=== PATIENT | male | born 1940 | race Caucasian/White ===

== ENCOUNTER → 2018-01-04 16:31 | Outpatient (CLI) | payer MEDICARE, SELFPAY ==
--- NOTE | 2018-01-04 16:34 | DI.RAD.S_ITS ---
PROCEDURE: XR ACUTE ABDOMEN SERIES INDICATIONS: ABDOMINAL PAIN TECHNIQUE: One view chest and two views of the abdomen were acquired. COMPARISON: None. FINDINGS: Surgical changes and devices: Multiple prior surgical clips are noted across the abdomen and pelvis. Chest: Lungs are clear. Heart size is normal. No pleural effusions. No pneumoperitoneum. Abdomen: Bowel gas pattern is abnormal with several small bowel loops somewhat prominent in caliber and their degree of gas filling.. No suspicious calcifications. Visualized solid organ contours appear normal. Bones: No suspicious bony lesions. IMPRESSION: Relatively nonspecific bowel gas pattern with several small bowel loops over the upper and mid abdomen slightly gas-filled with prominence. Depending on the clinical status followup by CT scanning may be warranted. Dictated by: Enmanuel Trujillo M.D. on 01/04/2018 at 17:09 Approved by: Enmanuel Trujillo M.D. on 01/04/2018 at 17:10
[2018-01-04 17:37] LABS: Alanine Aminotransferase 23 IU/L (21-72); Albumin Globulin Ratio 1.7 (1.0-2.8); Alkaline Phosphatase 76 U/L (38-126); Aspartate Aminotransferase 28 IU/L (17-59); BUN Creatinine Ratio 15.5 (6-22); Bilirubin Total 1.7 mg/dL (0.2-1.3); Blood Urea Nitrogen 17 mg/dL (9-20); Calcium 9.9 mg/dL (8.4-10.2); Carbon Dioxide 30 mmol/L (22-32); Chloride 93 mmol/L (98-107); Estimated Glomerular Filt Rate > 60.0 mL/min (>60); Glucose 121 mg/dL (80-110); HEMOLYSIS < 15 (0-50); Potassium 4.3 mmol/L (3.4-5.1); Sodium 140 mmol/L (137-145)
[2018-01-04 17:41] LABS: Add Manual Diff / Slide Review NO; Basophils Percent Auto 0.2 % (0-2); Eosinophils Percent Auto 0.5 % (2-4); Hematocrit 54.5 % (41-53); Hemoglobin 18.4 g/dL (13.5-17.5); Lymphocytes Percent Auto 13.6 % (25-40); Mean Corpuscular HGB Conc 33.8 % (30-36); Mean Corpuscular Hemoglobin 34.3 PG (26-34); Mean Corpuscular Volume 101.6 fL (80-100); Monocytes Percent Auto 9.7 % (3-14); Neutrophils Absolute Auto 7000 /uL (3000-5900); Platelet Count 254 X10^3/uL (150-400); Red Blood Cell Count 5.36 X10^6/uL (4.5-5.9); Red Cell Distribution Width 14.2 % (11.6-14.8); White Blood Cell Count 9.2 X10^3/uL (4.5-11.0)
== END ==
PROVIDERS: Family Provider Family Medicine; PCP Family Medicine; Visit Provider Physician Assistant
DX: R10.30 Lower abdominal pain, unspecified (principal)
CPT/HCPCS: 36415; 74022; 80053; 85025

== ENCOUNTER 2018-01-04 17:59 | Inpatient (IN) | payer MEDICARE, SELFPAY ==
[2018-01-04 18:07] VITALS: BP 151/99; PULSE 80; RESP 20; TEMP 36.8; O2SAT 100; BMI 25.6
--- NOTE | 2018-01-04 20:11 | ED.ABDPAIN ---
HPI - Abdominal Pain <SHANTEL Alvarez - Last Filed: 01/04/18 23:06> General Chief Complaint: Abdominal Pain Stated Complaint: ABD PAIN Time Seen by Provider: 01/04/18 20:11 Source: patient Mode of arrival: ambulatory Limitations: no limitations History of Present Illness HPI narrative: 77-year-old male with history of a prior colectomy appendectomy and atrial fibrillation that is taking Xarelto here for complaint of lower abdominal pain over the past day. He states abdominal pain started yesterday along with 1 episode of vomiting yesterday and some slight nausea. Nausea vomiting has resolved. Pain is to bilateral lower abdomen he was seen in the walk-in clinic and sent here for further evaluation as x-ray of the abdomen area shows prominent bowel loops and was concerning for small bowel obstruction. He states his last bowel movement was yesterday and was unremarkable. He denies any constipation. He denies any urinary symptoms. He denies any stressors relievers of his pain. He denies any trauma to the area. No fevers no chills. No other concerns or complaints at [facility] MD complaint: abdominal pain Related Data Home Medications Medication Instructions Recorded Confirmed timolol maleate [Timoptic] 0.5 drp EYE-BOTH DAILY #0 01/02/11 01/05/18 apixaban [Eliquis] 5 mg PO BID 01/05/18 01/05/18 Previous Rx's Medication Instructions Recorded atorvastatin [Lipitor] 10 mg PO HS #50 tab 03/16/17 omeprazole 20 mg capsule,delayed 20 mg PO DAILY #90 cap 09/24/17 release allopurinol 300 mg tablet 300 mg PO QDAY #90 tab 12/07/17 losartan 50 mg tablet 50 mg PO QDAY #90 tab 12/07/17 sulfamethoxazole 800 1 tab PO DAILY #90 tab 12/16/17 mg-trimethoprim 160 mg tablet Allergies Allergy/AdvReac Type Severity Reaction Status Date / Time dorzolamide [DORZOLAMIDE] Allergy Mild red eye Verified 01/04/18 15:47 NSAIDS (Non-Steroidal AdvReac Mild gi upset Verified 01/04/18 15:47 Anti-Inflamma [NSAIDS (NON-STEROIDAL ANTI-INFLAMMA] Review of Systems <SHANTEL Alvarez - Last Filed: 01/04/18 23:06> Constitutional Denies chills, Denies fever(s), Denies lethargy and Denies weakness Eyes Denies change in vision, Denies eye discharge, Denies irritation and Denies loss of vision ENT Ears, Nose, Mouth, and Throat: Denies change in voice, Denies neck pain and Denies sore throat Cardiovascular Denies chest pain, Denies irregular heart rhythm, Denies lightheadedness, Denies palpitations, Denies dyspnea, Denies dyspnea on exertion and Denies orthopnea Respiratory Denies cough, Denies dyspnea, Denies dyspnea on exertion and Denies wheezing Gastrointestinal Comments: Abdominal pain Genitourinary Denies hematuria, Denies flank pain, Denies urinary incontinence and Denies urinary urgency Musculoskeletal Denies neck pain Integumentary/Breasts Denies pruritus, Denies erythema, Denies rash and Denies wounds Neurologic Denies confusion, Denies loss of vision and Denies weakness Psychiatric Denies anxiety, Denies confusion, Denies depression, Denies homicidal ideation and Denies suicidal ideation Endocrine Denies palpitations Hematologic/Lymphatic Denies easy bruising Allergic/Immunologic Denies wheezing Exam <SHANTEL Alvarez - Last Filed: 01/04/18 23:06> Initial Vital Signs Initial Vital Signs: Vital Signs Temperature 98.2 F 01/04/18 18:07 Pulse Rate 80 01/04/18 18:07 Respiratory Rate 20 01/04/18 18:07 Blood Pressure 151/99 H 01/04/18 18:07 Pulse Oximetry 100 01/04/18 18:07 Const General: cooperative and well developed Nutritional Appearance: well nourished Orientation: alert, awake, oriented x3 and not confused [facility] Mouth: oral mucosae normal and moist mucous membranes Eyes Conjunctivae: conjunctivae normal Sclera: sclerae normal Pupils: PERRL EOM: EOM intact bilaterally Chest Chest: normal inspection of the chest Resp Effort & Inspection: normal respiratory effort, able to speak in complete sentences, no respiratory distress and no use of accessory muscles Auscultation: clear to auscultation bilaterally, no rales, no rhonchi and no wheezes Cardio Rate: regular rate Rhythm: regular rhythm Heart Sounds: no click, no gallops, no murmurs and no rubs Pulses: normal peripheral pulses GI Inspection: non-distended Palpation: soft, no hepatosplenomegaly, No guarding, No pulsatile mass and tender ( tender to bilateral lower abdomen) Auscultation: normal bowel sounds General: No CVA tenderness Skin General: no rashes or lesions noted, No jaundice and No petechiae Neuro General: alert, oriented x3, gait normal and no focal motor deficits Speech: speech normal <Mandi Dang DO - Last Filed: 01/06/18 03:55> Initial Vital Signs Initial Vital Signs: Vital Signs Temperature 98.2 F 01/04/18 18:07 Pulse Rate 80 01/04/18 18:07 Respiratory Rate 20 01/04/18 18:07 Blood Pressure 151/99 H 01/04/18 18:07 Pulse Oximetry 100 01/04/18 18:07 Course <SHANTEL Alvarez - Last Filed: 01/04/18 23:06> Orders Ordered: Benzocaine (Cepacol Lozenge) 1 each PO Q1HR PRN PRN Reason: Sore Throat Last Admin: 01/05/18 16:21 Dose: 1 each Hydromorphone HCl (Dilaudid) 2 mg IV Q4HR PRN PRN Reason: Pain, Moderate (4-6) Sodium Chloride (Normal Saline 0.9%) 1,000 mls @ 100 mls/hr IV CONT RANDOLPH Last Admin: 01/05/18 21:12 Dose: 100 mls/hr Infusion: 01/05/18 20:16 Dose: 100 mls/hr Admin: 01/05/18 10:16 Dose: 100 mls/hr Infusion: 01/05/18 10:16 Dose: 100 mls/hr Admin: 01/05/18 01:02 Dose: 100 mls/hr Ondansetron HCl (Zofran) 4 mg IV Q4HR PRN PRN Reason: Nausea And Vomiting Pantoprazole Sodium (Protonix) 40 mg IV DAILY RANDOLPH Last Admin: 01/05/18 16:22 Dose: 40 mg Timolol Maleate (Timoptic 0.5%) 1 drops EYE-BOTH DAILY R[facility] Discontinued Medications Sodium Chloride (Normal Saline 0.9%) 1,000 mls @ 1,000 mls/hr IV BOLUS ONE Stop: 01/04/18 21:57 Last Infusion: 01/04/18 22:15 Dose: 0 mls/hr Admin: 10/29/18 21:15 Dose: 1,000 mls/hr Lactated Ringer's (Lactated Ringers) 500 mls @ 1,000 mls/hr IV BOLUS ONE Stop: 01/05/18 16:14 Last Admin: 01/05/18 17:33 Dose: Lactated Ringer's (Lactated Ringers) 500 mls @ 1,000 mls/hr IV BOLUS ONE Stop: 01/05/18 17:14 Last Admin: 01/05/18 17:33 Dose: 1,000 mls/hr Pantoprazole Sodium (Protonix) 40 mg IV DAILY [facility] Pantoprazole Sodium (Protonix) 40 mg IV BID [facility] Vital Signs - 8 hr 01/05/18 20:27 01/05/18 23:45 Temperature 98.0 F 97.1 F L Pulse Rate 80 71 Respiratory Rate 16 17 Blood Pressure 146/90 H 148/90 H Pulse Oximetry 98 98 <Mandi Dang, - Last Filed: 01/06/18 03:55> Orders Ordered: Benzocaine (Cepacol Lozenge) 1 each PO Q1HR PRN PRN Reason: Sore Throat Last Admin: 01/05/18 16:21 Dose: 1 each Hydromorphone HCl (Dilaudid) 2 mg IV Q4HR PRN PRN Reason: Pain, Moderate (4-6) Sodium Chloride (Normal Saline 0.9%) 1,000 mls @ 100 mls/hr IV CONT [facility] Last Admin: 01/05/18 21:12 Dose: 100 mls/hr Infusion: 01/05/18 20:16 Dose: 100 mls/hr Admin: 01/05/18 10:16 Dose: 100 mls/hr Infusion: 01/05/18 10:16 Dose: 100 mls/hr Admin: 01/05/18 01:02 Dose: 100 mls/hr Ondansetron HCl (Zofran) 4 mg IV Q4HR PRN PRN Reason: Nausea And Vomiting Pantoprazole Sodium (Protonix) 40 mg IV DAILY [facility] Last Admin: 01/05/18 16:22 Dose: 40 mg Timolol Maleate (Timoptic 0.5%) 1 drops EYE-BOTH DAILY [facility] Discontinued Medications Sodium Chloride (Normal Saline 0.9%) 1,000 mls @ 1,000 mls/hr IV BOLUS ONE Stop: 01/04/18 21:57 Last Infusion: 01/04/18 22:15 Dose: 0 mls/hr Admin: 01/04/18 21:15 Dose: 1,000 mls/hr Lactated Ringer's (Lactated Ringers) 500 mls @ 1,000 mls/hr IV BOLUS ONE Stop: 01/05/18 16:14 Last Admin: 01/05/18 17:33 Dose: Lactated Ringer's (Lactated Ringers) 500 mls @ 1,000 mls/hr IV BOLUS ONE Stop: 01/05/18 17:14 Last Admin: 01/05/18 17:33 Dose: 1,000 mls/hr Pantoprazole Sodium (Protonix) 40 mg IV DAILY [facility] Pantoprazole Sodium (Protonix) 40 mg IV BID [facility] Vital Signs - 8 hr 01/05/18 20:27 01/05/18 23:45 Temperature 98.0 F 97.1 F L Pulse Rate 80 71 Respiratory Rate 16 17 Blood Pressure 146/90 H 148/90 H Pulse Oximetry 98 98 MDM - Abdominal Pain <SHANTEL Alvarez - Last Filed: 01/04/18 23:06> Lab Data Result diagrams: 01/05/18 14:36 01/05/18 14:36 Lab Results 01/05/18 01/05/18 01/05/18 Range/Units 14:36 14:36 14:36 WBC 7.6 (4.5-11.0) X10^3/uL RBC 4.70 (4.5-5.9) X10^6/uL Hgb 15.7 (13.5-17.5) g/dL Hct 47.0 (41-53) % MCV 100.0 (80-100) fL MCH 33.5 (26-34) PG MCHC 33.4 (30-36) % RDW 13.9 (11.6-14.8) % Plt Count 212 (150-400) X10^3/uL Neut % (Auto) 70.4 (50-75) % Lymph % (Auto) 17.9 L (25-40) % [place] % (Auto) 10.2 (3-14) % Eos % (Auto) 0.9 L (2-4) % Baso % (Auto) 0.6 (0-2) % Neut # (Auto) 5400 (3949-8804) /uL Sodium 138 (137-145) mmol/L Potassium 3.8 (3.4-5.1) mmol/L Chloride 98 (98-107) mmol/L Carbon Dioxide 27 (22-32) mmol/L BUN 15 (9-20) mg/dL Creatinine 1.00 (0.66-1.25) mg/dL Estimated GFR > 60.0 (>60) mL/min BUN/Creatinine Ratio 15.0 (6-22) Glucose 100 (80-110) mg/dL Lactate 1.3 (0.7-2.1) mmol/L Calcium 8.5 (8.4-10.2) mg/dL Point of care testing: Urine Dip Bedside Urine Glucose Negative Bedside Urine Bilirubin + 1 Bedside Urine Ketone +/- 5 Urine Specific [place] 1.030 Bedside Urine Occult Blood - Negative Bedside Urine pH 6.0 Bedside Urine Protein ++ 100 Bedside Urine Urobilinogen - Negative Bedside Urine Nitrite - Negative Bedside Urine Leukocytes - Negative Esterase MDM Narrative Medical decision making narrative: CT the abdomen was obtained shows a high-grade small-bowel obstruction to the left lower quadrant area with transition point. Discussed case with Dr. Juventino quintana who accepts patient for admission. Patient is admitted for hydration and pain control. NG tube is inserted in the emergency room. CBC shows elevated H&H most likely due to dehydration. Otherwise CBC and Chem panel were obtained were unremarkable. Urinalysis was negative for urinary tract infection <Mandi Dang, - Last Filed: 01/06/18 03:55> Lab Data Lab Results 01/05/18 01/05/18 01/05/18 Range/Units 14:36 14:36 14:36 WBC 7.6 (4.5-11.0) X10^3/uL RBC 4.70 (4.5-5.9) X10^6/uL Hgb 15.7 (13.5-17.5) g/dL Hct 47.0 (41-53) % MCV 100.0 (80-100) fL MCH 33.5 (26-34) PG MCHC 33.4 (30-36) % RDW 13.9 (11.6-14.8) % Plt Count 212 (150-400) X10^3/uL Neut % (Auto) 70.4 (50-75) % Lymph % (Auto) 17.9 L (25-40) % [place] % (Auto) 10.2 (3-14) % Eos % (Auto) 0.9 L (2-4) % Baso % (Auto) 0.6 (0-2) % Neut # (Auto) 5400 (3565-3009) /uL Sodium 138 (137-145) mmol/L Potassium 3.8 (3.4-5.1) mmol/L Chloride 98 (98-107) mmol/L Carbon Dioxide 27 (22-32) mmol/L BUN 15 (9-20) mg/dL Creatinine 1.00 (0.66-1.25) mg/dL Estimated GFR > 60.0 (>60) mL/min BUN/Creatinine Ratio 15.0 (6-22) Glucose 100 (80-110) mg/dL Lactate 1.3 (0.7-2.1) mmol/L Calcium 8.5 (8.4-10.2) mg/dL Point of care testing: Urine Dip Bedside Urine Glucose Negative Bedside Urine Bilirubin + 1 Bedside Urine Ketone +/- 5 Urine Specific [place] 1.030 Bedside Urine Occult Blood - Negative Bedside Urine pH 6.0 Bedside Urine Protein ++ 100 Bedside Urine Urobilinogen - Negative Bedside Urine Nitrite - Negative Bedside Urine Leukocytes - Negative Esterase Discharge Plan Departure Patient Disposition: Admitted As Inpatient Clinical Impression: Small bowel obstruction Discharge Date/Time: 01/05/18 01:19 Interventions: ED Discharge Assessment Last Done: 01/05/18 01:19 Admit Date/Time: 01/04/18 22:58 Admit Provider: Bridgett Jauregui <Mandi Dang DO - Last Filed: 01/06/18 03:55> Cosign ED Attending Darleen Attestation: I was immediately available in the department for consultation. Documentation has been reviewed. I agree with assessment and plan.
--- NOTE | 2018-01-04 20:58 | DI.CT.S_ITS ---
PROCEDURE: CT ABDOMEN PELVIS W CON INDICATIONS: Pain to lower abdomen bilaterally. TECHNIQUE: After the administration of intravenous contrast, 5 mm thick sections acquired from the diaphragm to the symphysis. 5 mm coronal and sagittal reformats were acquired. For radiation dose reduction, the following was used: automated exposure control, adjustment of mA and/or kV according to patient size. COMPARISON: [facility], CR, XR ACUTE ABDOMEN SERIES, 01/04/2018, 16:13. FINDINGS: Image quality: Excellent. ABDOMEN: Lung bases: There is mild dependent atelectasis. Heart size is enlarged. Solid organs: No focal hepatic lesions identified. Gallbladder appears within normal limits without calcified gallstones. Biliary system is non dilated. Pancreas enhances normally. Spleen is normal in size and enhancement. No adrenal nodules. Kidneys demonstrate no hydronephrosis. There is mild nonspecific perinephric stranding bilaterally. Peritoneum and bowel: There is fluid distention of the stomach and small bowel loops which measure up to approximately 2.9 cm in diameter. There is a focal transition point in the right lower quadrant seen on axial image 71 of series 2. More distal loops of small bowel are nondistended. There is colonic air to callosal is without acute diverticulitis. There is a small amount of intraperitoneal free fluid as well as mild edema in the small bowel mesentery. Findings are compatible with a high-grade obstruction. No free air. Nodes and vessels: No retroperitoneal or mesenteric adenopathy by size criteria. Aorta and inferior vena cava are normal in size. Miscellaneous: No ventral hernias. PELVIS: Genitourinary: The urinary bladder is nondistended. However, there is suggestion of bladder wall thickening. The prostate is enlarged. Miscellaneous: No inguinal hernias or adenopathy. Bones: No suspicious bony lesions. No vertebral body compression fractures. IMPRESSION: 1. Findings consistent with a high-grade small bowel obstruction with a transition point in the left lower quadrant, likely secondary to a postsurgical adhesion. Small amount of intraperitoneal free fluid and mild mesenteric edema demonstrated. 2. Diverticulosis without acute diverticulitis. Findings discussed with SHANTEL Alvarez on 01/04/18 at 10 PM. Dictated by: Colten Franks M.D. on 01/04/2018 at 21:54 Approved by: Colten Franks M.D. on 01/04/2018 at 22:05
[2018-01-04] MEDS: SODIUM CHLORIDE 0.9% 1,000 ML 1000 ML IV (21:15)
[2018-01-04 21:47] VITALS: BP 147/76; PULSE 77; RESP 17; O2SAT 100
[2018-01-04 22:59] VITALS: BP 135/91; PULSE 74; RESP 21; O2SAT 99
[2018-01-05] VITALS (7 sets, daily range): BP systolic 129–150; BP diastolic 76–94; PULSE 67–80; RESP 16–18; TEMP 36.2–37; O2SAT 96–98; BMI 25.6
[2018-01-05] MEDS: SODIUM CHLORIDE 0.9% 1,000 ML 100 ML IV ×3 (01:02→21:12)
--- NOTE | 2018-01-05 06:05 | PC.NURSE ---
Pt admitted to unit at 0100 as AxOx3, VSS, tolerating Room Air. NGT to low intermittent suction. Shift total= 1,150mL of green drainage. NS@100mL/hr running as ordered. Ambulates independently. No pain/nausea/emesis. No edema noted. Belly is distended but not severely. No gas. No BM since thursday as per patient. NPO.
--- NOTE | 2018-01-05 12:54 | PM.PN.1 ---
Subjective Date Patient Seen: 01/05/18 Time Patient Seen: 08:54 Interval history: Bowel obstruction Patient admitted last night to Dr. Jauregui service for bowel obstruction. I have been asked to review patient's medication by Dr. Jauregui. Apparently anticipating surgical intervention tomorrow pending resolution of the bowel obstruction today. The patient today has decreased pain no nausea NG tube working not passing gas no bowel movements The patient's medical history include gout, atrial fibrillation, anticoagulation on Eliquis, hyperlipidemia, hypertension, reflux, rosacea. The patient has not had is Eliquis since yesterday morning normally takes it twice a day Exam Vital Signs (past 8 hours): - 01/05/18 08:57 Temperature 98.6 F Pulse Rate 73 Respiratory Rate 17 Blood Pressure 139/79 Pulse Oximetry 97 Oxygen Delivery Method Room Air Narrative Exam Narrative: Patient examined this morning resting quietly with NG tube in place draining greenish fluid. Lungs are clear heart irregularly irregular rhythm Abdominal exam tender abdomen no bowel sounds Objective Labs Labs: Labs are reviewed from the emergency room all of which are unremarkable Assessment & Plan Plan: Assessment/Plan Narrative: 1. Bowel obstruction that seems to be significant. Discussed with Dr. Jauregui who anticipate presumed surgical intervention tomorrow pending Gastrografin study today 2. Patient on Eliquis 5 for prophylaxis of atrial fibrillation he remain off this until postop. Additionally anticipating surgery tomorrow there will be no bridging of Lovenox today as per suggested by Dr. Jauregui 3. Atrial fibrillation stable if requires medication can be treated intravenously with Cardizem 4. Hypertension stable if requires intervention can be treated with intravenous labetalol 5. History of hyperlipidemia will resume medications when he is able to take oral medications
[2018-01-05 14:43] LABS: Add Manual Diff / Slide Review NO; Basophils Percent Auto 0.6 % (0-2); Eosinophils Percent Auto 0.9 % (2-4); Hemoglobin 15.7 g/dL (13.5-17.5); Lymphocytes Percent Auto 17.9 % (25-40); Mean Corpuscular HGB Conc 33.4 % (30-36); Mean Corpuscular Hemoglobin 33.5 PG (26-34); Monocytes Percent Auto 10.2 % (3-14); Neutrophils Absolute Auto 5400 /uL (3000-5900); Neutrophils Percent Auto 70.4 % (50-75); Platelet Count 212 X10^3/uL (150-400); Red Cell Distribution Width 13.9 % (11.6-14.8); White Blood Cell Count 7.6 X10^3/uL (4.5-11.0)
--- NOTE | 2018-01-05 14:52 | PC.NURSE ---
Day shift: Dr Greene made aware that there appears to be some blood coming from NG tube. Verbal order for IV protonix as well as cebacol throat lozenge. Dr Greene also said ice chips ok for now.
[2018-01-05 14:58] LABS: Blood Urea Nitrogen 15 mg/dL (9-20); Calcium 8.5 mg/dL (8.4-10.2); Carbon Dioxide 27 mmol/L (22-32); Chloride 98 mmol/L (98-107); Estimated Glomerular Filt Rate > 60.0 mL/min (>60); Glucose 100 mg/dL (80-110); HEMOLYSIS < 15 (0-50); Potassium 3.8 mmol/L (3.4-5.1); Sodium 138 mmol/L (137-145)
[2018-01-05 14:59] LABS: Lactate (Lactic Acid) 1.3 mmol/L (0.7-2.1)
[2018-01-05] MEDS: BENZOCAINE/MENTHOL 1 LOZ PKT 1 EACH PO (16:21)
[2018-01-05] MEDS: PANTOPRAZOLE 40 MG VIAL IV (16:22)
[2018-01-05] MEDS: LACTATED RINGERS 500 ML 1000 ML IV (17:33)
--- NOTE | 2018-01-05 17:53 | P.HP_ITS ---
History of Present Illness Date Patient Seen: 01/05/18 Time Patient Seen: 07:50 Chief complaint: ABD PAIN Narrative: 77-year-old male with history of a prior colectomy appendectomy and atrial fibrillation that is taking Xarelto here for complaint of lower abdominal pain over the past day. He reports one episode of nausea and vomiting but that has since resolved. He reports his pain has improved since admission. He reports what he feels now is more of a sense of soreness than real pain. He had a bowel movement on the day prior to admission that was unremarkable. He denies fevers no chills or sick contacts. He has not had similar symptoms in the past. Patient History Surgical History Status post appendectomy (03/12/01) Status post colectomy (03/12/01) Status post hernia repair Family & Social History Family History: Reviewed 01/05/18 by Bridgett Jauregui MD Social History: household members spouse Prior Living Arrangements House Safety & Behavioral: Feels Safe in Current Yes Environment Been Physically Hurt or No Threatened By a Person Suicidal Ideation Description None Suicide Plan Description No Plan Tobacco & Substance use: Smoking Status Former smoker alcohol intake frequency 0-2 drinks per day Substance Use Type does not use Meds Home Medications Medication Instructions Recorded Confirmed Type timolol maleate [Timoptic] 0.5 drp EYE-BOTH DAILY #0 01/02/11 01/05/18 History atorvastatin [Lipitor] 10 mg PO HS #50 tab 03/16/17 01/05/18 Rx omeprazole 20 mg capsule,delayed 20 mg PO DAILY #90 cap 09/24/17 01/05/18 Rx release allopurinol 300 mg tablet 300 mg PO QDAY #90 tab 12/07/17 01/05/18 Rx losartan 50 mg tablet 50 mg PO QDAY #90 tab 12/07/17 01/05/18 Rx sulfamethoxazole 800 1 tab PO DAILY #90 tab 12/16/17 01/05/18 Rx mg-trimethoprim 160 mg tablet apixaban [Eliquis] 5 mg PO BID 01/05/18 01/05/18 History Allergies Allergy/AdvReac Type Severity Reaction Status Date / Time dorzolamide [DORZOLAMIDE] Allergy Mild red eye Verified 01/04/18 15:47 NSAIDS (Non-Steroidal AdvReac Mild gi upset Verified 01/04/18 15:47 Anti-Inflamma [NSAIDS (NON-STEROIDAL ANTI-INFLAMMA] Review of Systems Review of Systems All systems reviewed & are unremarkable except as noted in HPI and below Exam Vital Signs (past 8 hours): - 01/05/18 11:55 01/05/18 15:47 Temperature 98.6 F 98.1 F Pulse Rate 77 74 Respiratory Rate 18 16 Blood Pressure 129/83 130/76 Pulse Oximetry 98 96 Oxygen Delivery Method Room Air Narrative Exam Narrative: Pleasant and comfortable appearing gentleman who looks younger than his stated age. HEENT: Normocephalic and atraumatic, pupils equal round reactive to light accommodation with anicteric sclera Lungs: Essentially clear bilaterally. No wheezing Heart: Irregularly irregular. No audible murmur Abdomen: Soft, mild tenderness to palpation in the left lower quadrant. No rebound, guarding, heel tap, Rovsing sign, or any other peritoneal signs. He has a well-healed midline surgical abdominal incision. No palpable defects or masses within the incision. Active bowel sounds. Extremities: Warm and well perfused. Objective Labs Result Diagrams: 01/05/18 14:36 01/05/18 14:36 Labs: Laboratory Results - last 24 hr 01/05/18 01/05/18 01/05/18 14:36 14:36 14:36 WBC 7.6 RBC 4.70 Hgb 15.7 Hct 47.0 MCV 100.0 MCH 33.5 MCHC 33.4 RDW 13.9 Plt Count 212 Neut % (Auto) 70.4 Lymph % (Auto) 17.9 L Branch % (Auto) 10.2 Eos % (Auto) 0.9 L Baso % (Auto) 0.6 Neut # (Auto) 5400 Sodium 138 Potassium 3.8 Chloride 98 Carbon Dioxide 27 BUN 15 Creatinine 1.00 Estimated GFR > 60.0 BUN/Creatinine Ratio 15.0 Glucose 100 Lactate 1.3 Calcium 8.5 Assessment & Plan Plan: Assessment/Plan Narrative: [address] [address] [address] Scan Report Signed Patient: Florentino Waldrop MR#: [id number] : 1940 Acct:[id number] Age/Sex: 77 / M Date of Service: 01/04/18 Loc: ED Accession Number: [id number] Procedure: CT abdomen pelvis w con Ordering Provider: Kiran Christensen PROCEDURE: CT ABDOMEN PELVIS W CON INDICATIONS: Pain to lower abdomen bilaterally. TECHNIQUE: After the administration of intravenous contrast, 5 mm thick sections acquired from the diaphragm to the symphysis. 5 mm coronal and sagittal reformats were acquired. For radiation dose reduction, the following was used: automated exposure control, adjustment of mA and/or kV according to patient size. COMPARISON: [facility], CR, XR ACUTE ABDOMEN SERIES, 01/04/2018, 16:13. FINDINGS: Image quality: Excellent. ABDOMEN: Lung bases: There is mild dependent atelectasis. Heart size is enlarged. Solid organs: No focal hepatic lesions identified. Gallbladder appears within normal limits without calcified gallstones. Biliary system is non dilated. Pancreas enhances normally. Spleen is normal in size and enhancement. No adrenal nodules. Kidneys demonstrate no hydronephrosis. There is mild nonspecific perinephric stranding bilaterally. Peritoneum and bowel: There is fluid distention of the stomach and small bowel loops which measure up to approximately 2.9 cm in diameter. There is a focal transition point in the right lower quadrant seen on axial image 71 of series 2. More distal loops of small bowel are nondistended. There is colonic air to callosal is without acute diverticulitis. There is a small amount of intraperitoneal free fluid as well as mild edema in the small bowel mesentery. Findings are compatible with a high-grade obstruction. No free air. Nodes and vessels: No retroperitoneal or mesenteric adenopathy by size criteria. Aorta and inferior vena cava are normal in size. Miscellaneous: No ventral hernias. PELVIS: Genitourinary: The urinary bladder is nondistended. However, there is suggestion of bladder wall thickening. The prostate is enlarged. Miscellaneous: No inguinal hernias or adenopathy. Bones: No suspicious bony lesions. No vertebral body compression fractures. IMPRESSION: 1. Findings consistent with a high-grade small bowel obstruction with a transition point in the left lower quadrant, likely secondary to a postsurgical adhesion. Small amount of intraperitoneal free fluid and mild mesenteric edema demonstrated. 2. Diverticulosis without acute diverticulitis. Findings discussed with SHANTEL Alvarez on 01/04/18 at 10 PM. Dictated by: Colten Franks M.D. on 01/04/2018 at 21:54 Approved by: Colten Franks M.D. on 01/04/2018 at 22:05 Very pleasant 77-year-old gentleman with a history of sigmoid colon resection for diverticulitis. He has clinical and radiographic evidence of a high-grade small bowel obstruction but there is no evidence of ischemia and his tenderness is less than I would expect in this clinical circumstance. Florentino is vehemently opposed to surgical intervention at this time and I understand. We are going to give him the day on bowel rest with NG tube decompression and see if he improves. I will recheck labs this afternoon as long as they are reassuring, we can reassess our options this afternoon or in the morning. I will provide Florentino with some Cepacol lozenges, ice chips, popsicles etc to help him with his discomfort related to the NG..
--- NOTE | 2018-01-05 21:14 | PC.NURSE ---
Estee shift note: Patient awake and alert, tolerating clear liquid, no nausea or vomiting. Active BS, non distended. Continue with dark bilious drainage to NGT, no gross blood noted. Patient had large brown soft BM. Passing flatus. Monitoring strict I & O's. IVF infusing. Call light within reach.
--- NOTE | 2018-01-06 | DI.RAD.S_ITS ---
PROCEDURE: XR ACUTE ABDOMEN SERIES INDICATIONS: bowel obstruction TECHNIQUE: One view chest and two views of the abdomen were acquired. COMPARISON: [facility], , XR ACUTE ABDOMEN SERIES, 01/04/2018, 16:13. FINDINGS: Surgical changes and devices: Enteric tube is seen with the tip projecting in the stomach. Numerous surgical clips and suzanne project in the abdomen. Chest: Lungs are clear. Heart size is normal. No pleural effusions. No pneumoperitoneum. Abdomen: Bowel gas pattern is nonspecific. No pathologically dilated bowel seen. There is stool in rectum. No suspicious calcifications. Visualized solid organ contours appear normal. Bones: No suspicious bony lesions. IMPRESSION: Enteric tube with the tip projecting in the abdomen. No pathologically dilated bowel. Clear lungs. Dictated by: Thien Khoury M.D. on 01/06/2018 at 10:30 Approved by: Thien Khoury M.D. on 01/06/2018 at 10:33
--- NOTE | 2018-01-06 | DI.RAD.S_ITS ---
PROCEDURE: FL SMALL BOWEL FOLLOW THROUGH INDICATIONS: Small bowel obstruction COMPARISON: None. 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 No suspicious abdominal calcifications. Visualized solid organ contours appear normal. No suspicious bony abnormalities. Small bowel: There is abnormally delayed transit time of barium through the small bowel into the colon, with the: Documented as receiving small bowel contrast at 5.5 hours after initiation of the study. Small bowel loops are of mildly dilated caliber throughout. Mucosal folds are smooth and of normal thickness. No strictures, intraluminal masses, or extrinsic mass effects are noted. The terminal ileum is overlapped by multiple small bowel loops and therefore the exact morphology of the terminal ileum is not established.. IMPRESSION: 5.5 hour delayed transit time of oral contrast through the small bowel to reach the colon. A discrete etiology for this abnormality is not seen. Multiple surgical clips are noted over the mid and lower abdomen/pelvis and postoperative ileus can produce such an appearance. The colon is not distended. Small bowel is only mildly fluid and air dilated. No free air is seen. Dictated by: Enmanuel Trujillo M.D. on 01/06/2018 at 19:54 Approved by: Enmanuel Trujillo M.D. on 01/06/2018 at 20:02
[2018-01-06 03:35] VITALS: BP 146/80; PULSE 77; RESP 17; TEMP 36.7; O2SAT 98
[2018-01-06 07:30] VITALS: BP 148/90; PULSE 62; RESP 16; TEMP 36.7; O2SAT 97
--- NOTE | 2018-01-06 08:52 | P.PN_ITS ---
Subjective Date Patient Seen: 01/06/18 Time Patient Seen: 08:50 Interval history: Patient feeling much better this morning. Apparently is passing gas. Apparently he has had bowel movements. Still has NG tube in Apparently has been allowed to have clear liquids patient currently eating his chicken broth and enjoying it immensely. Exam Vital Signs (past 8 hours): - 01/06/18 03:35 01/06/18 07:30 Temperature 98.0 F 98.0 F Pulse Rate 77 62 Respiratory Rate 17 16 Blood Pressure 146/80 H 148/90 H Pulse Oximetry 98 97 Oxygen Delivery Method Room Air Narrative Exam Narrative: He looks much more comfortable today conversant looking forward to having the NG tube pulled Abdominal exam shows minimal tenderness NG tube is still producing greenish fluid Objective Labs Result Diagrams: 01/05/18 14:36 01/05/18 14:36 Labs: Laboratory Results - last 24 hr 01/05/18 01/05/18 01/05/18 14:36 14:36 14:36 WBC 7.6 RBC 4.70 Hgb 15.7 Hct 47.0 MCV 100.0 MCH 33.5 MCHC 33.4 RDW 13.9 Plt Count 212 Neut % (Auto) 70.4 Lymph % (Auto) 17.9 L Alfalfa % (Auto) 10.2 Eos % (Auto) 0.9 L Baso % (Auto) 0.6 Neut # (Auto) 5400 Sodium 138 Potassium 3.8 Chloride 98 Carbon Dioxide 27 BUN 15 Creatinine 1.00 Estimated GFR > 60.0 BUN/Creatinine Ratio 15.0 Glucose 100 Lactate 1.3 Calcium 8.5 Assessment & Plan Plan: Assessment/Plan Narrative: 1. Apparent bowel obstruction improving may well all avoid his operation as per surgeon Medically otherwise stable. 2. Once the NG tube has been removed and he is tolerating oral feedings we will resume his baseline medications
[2018-01-06] MEDS: PANTOPRAZOLE 40 MG VIAL IV (09:02)
[2018-01-06] MEDS: TIMOLOL 0.5% OPHTH 1 DROPS EYE-BOTH (09:02)
[2018-01-06 10:30] LABS: Add Manual Diff / Slide Review NO; Basophils Percent Auto 0.7 % (0-2); Eosinophils Percent Auto 1.4 % (2-4); Hematocrit 45.7 % (41-53); Hemoglobin 15.3 g/dL (13.5-17.5); Lymphocytes Percent Auto 11.6 % (25-40); Mean Corpuscular HGB Conc 33.5 % (30-36); Mean Corpuscular Hemoglobin 33.5 PG (26-34); Mean Corpuscular Volume 100.1 fL (80-100); Monocytes Percent Auto 7.2 % (3-14); Neutrophils Absolute Auto 5200 /uL (3000-5900); Neutrophils Percent Auto 79.1 % (50-75); Platelet Count 196 X10^3/uL (150-400); Red Blood Cell Count 4.56 X10^6/uL (4.5-5.9); Red Cell Distribution Width 13.9 % (11.6-14.8); White Blood Cell Count 6.6 X10^3/uL (4.5-11.0)
[2018-01-06 10:54] LABS: Alanine Aminotransferase 20 IU/L (21-72); Albumin 3.8 g/dL (3.5-5.0); Albumin Globulin Ratio 1.4 (1.0-2.8); Alkaline Phosphatase 56 U/L (38-126); Aspartate Aminotransferase 26 IU/L (17-59); BUN Creatinine Ratio 14.4 (6-22); Blood Urea Nitrogen 13 mg/dL (9-20); Calcium 8.1 mg/dL (8.4-10.2); Carbon Dioxide 26 mmol/L (22-32); Chloride 101 mmol/L (98-107); Estimated Glomerular Filt Rate > 60.0 mL/min (>60); Globulin 2.7 g/dL (1.7-4.1); Glucose 167 mg/dL (80-110); HEMOLYSIS < 15 (0-50); Potassium 3.7 mmol/L (3.4-5.1); Sodium 140 mmol/L (137-145); Total Protein 6.5 g/dL (6.3-8.2)
--- NOTE | 2018-01-06 11:14 | CM.DANOTE ---
DCP: Case received, EMR reviewed and met with patient. Introduced self and role. DCP template completed with information currently available. Patient is a 77 year old male who admitted on the in the evening to the care of the hospitalist team. PCP: Dr. Ren. Payer: confirmed: Medicare/[employer]. Patient came to hospital with symptoms of abdominal pain. Patient carries a diagnosis of small bowel obstruction. Patient pleasant, alert and oriented, wanting to go home. Lives in [place] with his spouse. P: DCP to continue to follow. Plan is for patient to return home when stable. Krystal Amaya RN/[employer]
[2018-01-06 15:15] VITALS: BP 152/93; PULSE 89; RESP 18; TEMP 36.4
--- NOTE | 2018-01-06 17:41 | P.PN_ITS ---
Subjective Date Patient Seen: 01/06/18 Time Patient Seen: 17:39 Interval history: Saw patient this morning at 8:00 a.m. and then again this afternoon at 5:39 p.m.. He reports that he is feeling much better. He denies any nausea since the NG tube has been clamped for his small-bowel follow- through. He has had 3 bowel movements today since the study began. He is very anxious to have something else to drink and 2 have his NG tube removed and eat again. He denies any abdominal pain. He reports that all of that has resolved. NG tube remains in place and is draining only scant bile tinged fluid now. Exam Vital Signs (past 8 hours): - 01/06/18 15:15 Temperature 97.5 F L Pulse Rate 89 Respiratory Rate 18 Blood Pressure 152/93 H Oxygen Delivery Method Room Air Narrative Exam Narrative: Much brighter and more comfortable appearing than yesterday morning Abdomen: Soft, active bowel tones, no rebound or guarding, no heel tap a Rovsing sign. Objective Labs Result Diagrams: 01/06/18 10:22 01/06/18 10:22 Labs: Laboratory Results - last 24 hr 01/06/18 01/06/18 10:22 10:22 WBC 6.6 RBC 4.56 Hgb 15.3 Hct 45.7 MCV 100.1 H MCH 33.5 MCHC 33.5 RDW 13.9 Plt Count 196 Neut % (Auto) 79.1 H Lymph % (Auto) 11.6 L [place] % (Auto) 7.2 Eos % (Auto) 1.4 L Baso % (Auto) 0.7 Neut # (Auto) 5200 Sodium 140 Potassium 3.7 Chloride 101 Carbon Dioxide 26 BUN 13 Creatinine 0.90 Estimated GFR > 60.0 BUN/Creatinine Ratio 14.4 Glucose 167 H Calcium 8.1 L Total Bilirubin 1.0 AST 26 ALT 20 L Alkaline Phosphatase 56 Total Protein 6.5 Albumin 3.8 Globulin 2.7 Albumin/Globulin Ratio 1.4 Assessment & Plan Plan: Assessment/Plan Narrative: Small-bowel obstruction appears to be resolving spontaneously. I went over the available films with Dr. Thien Khoury this afternoon and it appears the contrast is making its way through the small bowel at a fairly normal rate. The only true abnormality seen on the films is slow evacuation of the stomach and spontaneous reflux. We will await final films later this evening. Leave NG tube in place for now. Further plans in the morning.
[2018-01-06 19:04] VITALS: BP 160/98; PULSE 96; RESP 18; TEMP 36.6
[2018-01-06] MEDS: SODIUM CHLORIDE 0.9% 1,000 ML 100 ML IV (22:56)
[2018-01-06 23:49] VITALS: BP 151/91; PULSE 91; RESP 20; TEMP 36.7; O2SAT 95
[2018-01-07 07:50] VITALS: BP 158/81; PULSE 79; RESP 18; TEMP 36.8
[2018-01-07] MEDS: TIMOLOL 0.5% OPHTH 1 DROPS EYE-BOTH (09:11)
[2018-01-07] MEDS: PANTOPRAZOLE 40 MG VIAL IV (09:13)
[2018-01-07] MEDS: SODIUM CHLORIDE 0.9% 1,000 ML 100 ML IV (09:19)
--- NOTE | 2018-01-07 11:07 | PM.PN.1 ---
Subjective Date Patient Seen: 01/07/18 Time Patient Seen: 11:07 Interval history: Some nausea this AM and vomited approximately 200 mls. NGT drainage down overnight but patient reports he did not sleep well. SBFT was significant for a slow transit time but no definite point of obstruction. Gastric emptying was notably slow and contrast was seen in the stomach for several hours after the start of the procedure. Hooked NGT back to suction this AM with aspiration of about 250 mls of clear gastric contents without foul odor. Exam Vital Signs (past 8 hours): - 01/07/18 07:50 Temperature 98.2 F Pulse Rate 79 Respiratory Rate 18 Blood Pressure 158/81 H Oxygen Delivery Method Room Air Narrative Exam Narrative: Lungs: clear bilaterally CV: RRR Abd: soft, active bowel sounds, no tenderness to palpation Ext: no edema Objective Labs Result Diagrams: 01/06/18 10:22 01/06/18 10:22 Assessment & Plan Plan: Assessment/Plan Narrative: 1. Leave NGT in place. 2. Start Reglan - hopefully will help with gastric emptying and improvement of reflux symptoms 3. Continue other medications
[2018-01-07] MEDS: METOCLOPRAMIDE 10 MG/2 ML INJ 5 MG IV ×2 (13:50→21:28)
[2018-01-07 14:25] VITALS: BP 155/101; PULSE 74; RESP 18; TEMP 36.8; O2SAT 98
[2018-01-07 16:52] VITALS: BP 138/85; PULSE 73; RESP 20; TEMP 37; O2SAT 98
[2018-01-08 02:13] VITALS: BP 128/73; PULSE 72; RESP 18; TEMP 36.9; O2SAT 97
--- NOTE | 2018-01-08 03:44 | PC.NURSE ---
Pt is A and O x 4, VSS, denies pain, states this is the best I have felt in days Suction set at intermittent low, and output is green and thick moderate 40mL/hr. LS diminished and S1, S2.
[2018-01-08] MEDS: METOCLOPRAMIDE 10 MG/2 ML INJ 5 MG IV ×3 (05:37→21:15)
[2018-01-08] MEDS: SODIUM CHLORIDE 0.9% 1,000 ML 100 ML IV ×2 (05:37→18:14)
[2018-01-08 06:00] VITALS: BP 148/85; PULSE 78; RESP 16; TEMP 36.7; O2SAT 96
[2018-01-08 07:40] VITALS: BP 179/108; PULSE 77; RESP 18; TEMP 36.3
[2018-01-08] MEDS: TIMOLOL 0.5% OPHTH 1 DROPS EYE-BOTH (09:05)
[2018-01-08] MEDS: PANTOPRAZOLE 40 MG VIAL IV (09:05)
[2018-01-08 11:55] VITALS: BP 152/96; PULSE 73; RESP 18; TEMP 36.9; O2SAT 98
--- NOTE | 2018-01-08 12:18 | PM.PN.1 ---
Subjective Date Patient Seen: 01/08/18 Time Patient Seen: 12:18 Interval history: Florentino reports he feels better today than he has in some time. He denies any nausea. He reports he is very hungry and wants to eat. He denies any abdominal pain. Exam Vital Signs (past 8 hours): - 01/08/18 06:00 01/08/18 07:40 Temperature 98.0 F 97.3 F L Pulse Rate 78 77 Respiratory Rate 16 18 Blood Pressure 148/85 H 179/108 H Pulse Oximetry 96 Oxygen Delivery Method Room Air Oxygen Flow Rate 0 Narrative Exam Narrative: Lungs: CTAB, no wheezing CV: RRR, no murmur Abd: soft, nontender, active bowel sounds. No rebound or guarding Ext: Warm and without edema Objective Labs Result Diagrams: 01/06/18 10:22 01/06/18 10:22 Assessment & Plan Plan: Assessment/Plan Narrative: Discussed plans with the patient. He has had multiple bowel movements and things seem to be moving through. Will leave the NGT clamped today and check residual at 230. If less than 50 cc, will clamp over night and recheck in the AM.
[2018-01-08] MEDS: LACTATED RINGERS 500 ML 1000 ML IV (12:36)
--- NOTE | 2018-01-08 13:47 | CM.DPC ---
DCP: assessment: Case received, EMR reviewed and see that Dr. Jauregui was here at noon and has ok'd NG to Suction to be clamped, checked again this afternoon and reclamped if appropriate. Then recheck again tomorrow....She notes pt is having multiple BMs. P: check in tomorrow. As noted in initial DCP assessment: pt has identified d/c goal as home with his when he is stable for same...will follow prn.
[2018-01-08 15:46] VITALS: BP 151/102; PULSE 79; RESP 18; TEMP 36.7; O2SAT 99
--- NOTE | 2018-01-08 16:38 | PC.NURSE ---
GI: Pt has amb several times in hallway indep, gait steady. Likes to get up and move. Has passed flatus and has had a couple of bm's thin fluid, green. Ngt remains clamped. No pain. No n/v.
[2018-01-08 20:07] VITALS: BP 163/98; PULSE 77; RESP 20; TEMP 36.3; O2SAT 95
[2018-01-09] VITALS (9 sets, daily range): BP systolic 101–161; BP diastolic 61–109; PULSE 71–111; RESP 16–22; TEMP 36.3–38.2; O2SAT 96–100
[2018-01-09] MEDS: SODIUM CHLORIDE 0.9% 1,000 ML 100 ML IV (04:28)
--- NOTE | 2018-01-09 04:55 | PC.NURSE ---
Pt is A and O x 4, VSS. NG continues to be clamped. Pt denies pain and nausea and hopes to DC soon. NPO status continues. LS clear but diminished, S1, S2, tinny sounding BTs. Voiding qs clear yellow.
[2018-01-09] MEDS: METOCLOPRAMIDE 10 MG/2 ML INJ 5 MG IV ×2 (05:57→14:10)
[2018-01-09] MEDS: PANTOPRAZOLE 40 MG VIAL IV (10:38)
[2018-01-09] MEDS: TIMOLOL 0.5% OPHTH 1 DROPS EYE-BOTH (10:38)
--- NOTE | 2018-01-09 13:32 | PC.NURSE ---
Am shift Dr Jauregui called to check in on Pt, whos only concern this AM was advancing diet. NG clamped, no nausea, no pain. Voiding and flatus +, orders rec'd. 1300-Tolerating clear liquid diet well. Continues with out pain. BP slightly elevated, discussed adding home medications back for HTN and Elequis for stroke prevention. Will address with Dr Jauregui on rounds.
--- NOTE | 2018-01-09 14:17 | PM.PN.1 ---
Subjective Date Patient Seen: 01/09/18 Time Patient Seen: 14:18 Interval history: In great spirits. Reports he is hungry and has been tolerating a clear liquid diet without difficulty. Would very much like a hamburger. Continues to ambulate in the halls. Has had 3 bowel movements today. Exam Vital Signs (past 8 hours): - 01/09/18 08:35 01/09/18 11:08 01/09/18 12:20 Temperature 98.3 F 97.4 F L Pulse Rate 84 89 84 Respiratory Rate 20 22 Blood Pressure 143/98 H 161/109 H 134/106 H Pulse Oximetry 98 97 Oxygen Delivery Method Room Air Oxygen Flow Rate 0 Narrative Exam Narrative: Lungs: clear bilaterally CV: RRR Abd: soft, active bowel sounds, non tender to palpation Ext: no edema Objective Labs Result Diagrams: 01/06/18 10:22 01/06/18 10:22 Assessment & Plan Plan: Assessment/Plan Narrative: 1. Advance to soft mechanical diet for supper 2. Resume all home meds 3. Hep lock IV 4. Plan for discharge home in the AM if all continues to go well.
[2018-01-09 15:06] LABS: BUN Creatinine Ratio 16.3 (6-22); Blood Urea Nitrogen 13 mg/dL (9-20); Calcium 8.4 mg/dL (8.4-10.2); Carbon Dioxide 25 mmol/L (22-32); Chloride 108 mmol/L (98-107); Estimated Glomerular Filt Rate > 60.0 mL/min (>60); Glucose 135 mg/dL (80-110); HEMOLYSIS < 15 (0-50); Potassium 3.7 mmol/L (3.4-5.1); Sodium 146 mmol/L (137-145)
[2018-01-09] MEDS: LOSARTAN 50 MG TABLET PO (16:27)
[2018-01-09] MEDS: ATORVASTATIN 10 MG TABLET PO (21:14)
[2018-01-09] MEDS: APIXABAN 5 MG TABLET PO (21:14)
[2018-01-09] MEDS: SODIUM CHLORIDE 0.9% FLUSH 10 ML IV (21:15)
[2018-01-10 04:00] VITALS: BP 153/87; PULSE 82; RESP 20; TEMP 36.9; O2SAT 98
--- NOTE | 2018-01-10 04:11 | PC.NURSE ---
Pt is A and O x 4, VSS. Pt slept very well this shift, continuously for > 7 hours. He has + BT x 4, has had two medium loose stools within past 24 hours and is voiding qs clear yellow. LS clear, S1, S2. Pt is enjoying eating and has been ambulating in hallways, had a shower
[2018-01-10] MEDS: METOCLOPRAMIDE 10 MG/2 ML INJ 5 MG IV (04:58)
--- NOTE | 2018-01-10 08:09 | PC.NURSE ---
Addendum entered by Yumiko Díaz R.N. 01/10/18 13:32: Reviewed all d/c medications and POC, IV removed and wheeled to prvate vehicle. Original Note: Am shift Pt is eager to d/c no c/o pain or nausea. Asking about regular diet. Continue on PO home meds with out difficulty.
[2018-01-10 08:30] VITALS: BP 118/75; PULSE 76; RESP 20; TEMP 36.4; O2SAT 98
[2018-01-10] MEDS: PANTOPRAZOLE 40 MG VIAL IV (09:49)
[2018-01-10] MEDS: ALLOPURINOL 300 MG TABLET PO (09:49)
[2018-01-10] MEDS: LOSARTAN 50 MG TABLET PO (09:49)
[2018-01-10] MEDS: TIMOLOL 0.5% OPHTH 1 DROPS EYE-BOTH (09:51)
[2018-01-10] MEDS: SODIUM CHLORIDE 0.9% FLUSH 10 ML IV (09:51)
[2018-01-10] MEDS: APIXABAN 5 MG TABLET PO (10:25)
[2018-01-10 11:08] VITALS: BP 121/79; PULSE 68; RESP 18; TEMP 36.3; O2SAT 98
--- NOTE | 2018-01-10 12:20 | P.DS_ITS ---
History of Present Illness Chief complaint: ABD PAIN Narrative: 77-year-old male with history of a prior colectomy appendectomy and atrial fibrillation that is taking Xarelto here for complaint of lower abdominal pain over the past day. He reports one episode of nausea and vomiting but that has since resolved. He reports his pain has improved since admission. He reports what he feels now is more of a sense of soreness than real pain. He had a bowel movement on the day prior to admission that was unremarkable. He denies fevers no chills or sick contacts. He has not had similar symptoms in the past. Discharge Providers Date of admission: 01/04/18 22:58 Primary care physician: Angel Ren MD Consults: 01/04/18 22:47 Consult to General Surgery Routine Comment: Consulting Provider: Bridgett Jauregui Reason for consultation: small-bowel obstruction Has provider been notified: Yes Consult to Physician Routine Comment: Consulting Provider: Angel Ren Reason for consultation: primary care Has provider been notified: No Discharge provider: Bridgett Jauregui MD Discharge Date: 01/10/18 Summary Discharge Diagnosis: Small bowel obstruction Hospital Course: Mr. Waldrop was admitted and started on bowel rest. He began to improve almost immediately but his NG tube output was remarkably high. He failed a trial of NG tube clamping and so an upper GI and small-bowel follow- through was done. This revealed a very slow transit time through the bowel but no point of obstruction. It was notable that he still had contrast in the stomach at 3:00 a.m.. He was started on Reglan and this team to resolve the entire situation. At this time, he is eating a regular diet, walking the halls without assistance, and is pain free. He is discharged to his home in the care of his . He will resume all of his pre-admission medications. He will follow up with me as needed. He will follow up with Dr. Ren within the next month or so. Status at Discharge Cognitive/behavioral status at discharge: Normal Functional status at discharge: independent ambulation Overall status at discharge: patient is progressing back to baseline Time Spent with Patient Less than 30 minutes Exam Vital Signs (past 8 hours): - 01/10/18 08:30 01/10/18 11:08 Temperature 97.5 F L 97.3 F L Pulse Rate 76 68 Respiratory Rate 20 18 Blood Pressure 118/75 121/79 Pulse Oximetry 98 98 Oxygen Delivery Method Room Air Oxygen Flow Rate 0 Objective Labs Result Diagrams: 01/06/18 10:22 01/09/18 14:30 Labs: Laboratory Results - last 24 hr 01/09/18 14:30 Sodium 146 H Potassium 3.7 Chloride 108 H Carbon Dioxide 25 BUN 13 Creatinine 0.80 Estimated GFR > 60.0 BUN/Creatinine Ratio 16.3 Glucose 135 H Calcium 8.4 Discharge Plan Discharge Plan Patient Disposition: Home Discharge Med Rec/Prescriptions Prescriptions: Continue timolol maleate [Timoptic] 0.5 % drops 0.5 drp EYE-BOTH DAILY Qty: 0 RF: 0 atorvastatin [Lipitor] 20 MG tablet 10 mg PO HS Qty: 50 RF: 3 omeprazole 20 mg capsule,delayed release(DR/EC) 20 mg PO DAILY Qty: 90 RF: 3 allopurinol 300 mg tablet 300 mg PO QDAY Qty: 90 RF: 0 losartan 50 mg tablet 50 mg PO QDAY Qty: 90 RF: 0 sulfamethoxazole-trimethoprim 800-160 mg tablet 1 tab PO DAILY Qty: 90 RF: 3 apixaban [Eliquis] 5 mg tablet 5 mg PO BID RF: 0 Follow up/Referrals: Angel Ren MD [Primary Care Provider] - Provider Discharge Instructions Diet: Diet as Tolerated Visit Report/Discharge Packet Instructions: Small Bowel Obstruction, Low-Fiber/Low-Residue Diet Discharge Data Primary Care Provider: Angel Ren Attending Provider: Bridgett Jauregui Admit Date/Time: 01/04/18 22:58
--- NOTE | 2018-01-10 13:32 | CM.DPC ---
DCP: continued: discussed in Team Rounds. RN Eneida notes pt was kept again last night to make sure he was tolerating his diet. A dc to home later today was expected and pt was expressing hopefulness for same. See now that Dr. Jauregui was just here and has ok'd pt for home as per his plan.
== END 2018-01-10 13:33 | disposition home or self-care (01) | DRG 390 ==
LOC: ED 22:53 → AC 22:59
PROVIDERS: Admitting Provider Surgery; Emergency Provider Nurse Practitioner Family; Family Provider Family Medicine; PCP Family Medicine; Visit Provider Surgery
DX: K56.50 Intestinal adhesions [bands], unspecified as to partial versus complete obstruction (principal); I48.91 Unspecified atrial fibrillation; Z79.01 Long term (current) use of anticoagulants; R10.30 Lower abdominal pain, unspecified
CPT/HCPCS: 36415; 36591; 74022; 74177; 74250; 80048; 80053; 81003; 82962; 83605; 85025; 99222; 99232; 99233; 99238; 99284; C9113; J2765; Q9967

== ENCOUNTER 2018-01-14 22:22 | Inpatient (IN) | payer MEDICARE, SELFPAY ==
[2018-01-05 00:35] VITALS: BMI 25.6
[2018-01-14 22:37] VITALS: BP 144/79; PULSE 81; RESP 16; TEMP 36.6; O2SAT 100
[2018-01-14] MEDS: ONDANSETRON 4 MG/2 ML INJ IV (23:07)
[2018-01-14] MEDS: SODIUM CHLORIDE 0.9% 1,000 ML 1000 ML IV (23:07)
[2018-01-14 23:16] LABS: Add Manual Diff / Slide Review NO; Basophils Percent Auto 0.4 % (0-2); Eosinophils Percent Auto 0.3 % (2-4); Hematocrit 48.1 % (41-53); Hemoglobin 16.5 g/dL (13.5-17.5); Lymphocytes Percent Auto 13.7 % (25-40); Mean Corpuscular HGB Conc 34.4 % (30-36); Mean Corpuscular Hemoglobin 33.8 PG (26-34); Mean Corpuscular Volume 98.4 fL (80-100); Monocytes Percent Auto 11.9 % (3-14); Neutrophils Absolute Auto 5600 /uL (3000-5900); Neutrophils Percent Auto 73.7 % (50-75); Platelet Count 301 X10^3/uL (150-400); Red Blood Cell Count 4.89 X10^6/uL (4.5-5.9); Red Cell Distribution Width 13.6 % (11.6-14.8); White Blood Cell Count 7.6 X10^3/uL (4.5-11.0)
[2018-01-14 23:19] LABS: INR 1.5 (0.9-1.3); Prothrombin Time 16.3 SECONDS (10.1-12.7)
[2018-01-14 23:22] LABS: PTT Partial Thromboplastin Tim 34 SECONDS (26.4-36.2)
[2018-01-14 23:24] LABS: Alanine Aminotransferase 38 IU/L (21-72); Albumin 4.6 g/dL (3.5-5.0); Albumin Globulin Ratio 1.3 (1.0-2.8); Alkaline Phosphatase 71 U/L (38-126); Aspartate Aminotransferase 29 IU/L (17-59); BUN Creatinine Ratio 17.7 (6-22); Bilirubin Total 1.2 mg/dL (0.2-1.3); Blood Urea Nitrogen 23 mg/dL (9-20); Carbon Dioxide 23 mmol/L (22-32); Chloride 96 mmol/L (98-107); Estimated Glomerular Filt Rate 53.4 mL/min (>60); Globulin 3.5 g/dL (1.7-4.1); Glucose 122 mg/dL (80-110); HEMOLYSIS < 15 (0-50); Potassium 3.5 mmol/L (3.4-5.1); Sodium 137 mmol/L (137-145); Total Protein 8.1 g/dL (6.3-8.2)
[2018-01-14 23:30] VITALS: BP 112/65; PULSE 68; RESP 16; O2SAT 99
--- NOTE | 2018-01-14 23:47 | ED_ITS ---
HPI - Nausea/Vomiting/Diarrhea General Chief complaint: Nausea/Vomiting/Diarrhea Stated complaint: NAUSEA Time Seen by Provider: 01/14/18 22:53 Source: patient Mode of arrival: ambulatory Limitations: no limitations History of Present Illness HPI Narrative: This is a 69-year-old male who comes to the emergency department for persistent vomiting. Patient was just discharged on the 12 of January for small bowel obstruction. He states he had an NG-tube placed. His symptoms initially been vomiting, he had not been having any bowel movements and not been having any passing of gas. He states that there was a disagreement between the 2 radiologist about whether he technically had a bowel obstruction although clinically sounds like he did. He states he started having vomiting again today, he has been passing gas. He has not had much stool. He has had crampy abdominal pain in the lower half of his abdomen on both sides that is feels similar to when he was admitted for his bowel obstruction. States he feels a little bit more distended. He denies any fevers. Denies any chest pain or shortness of breath. He denies any urinary symptoms. He does take Eliquis for AFib, history of gout, dyslipidemia and hypertension. He also has GERD as well as glaucoma. He has a history of diverticulitis. Related Data Home Medications Medication Instructions Recorded Confirmed timolol maleate [Timoptic] 0.5 drp EYE-BOTH DAILY #0 01/02/11 01/14/18 apixaban [Eliquis] 5 mg PO BID 01/05/18 01/14/18 Previous Rx's Medication Instructions Recorded atorvastatin [Lipitor] 10 mg PO HS #50 tab 03/16/17 omeprazole 20 mg capsule,delayed 20 mg PO DAILY #90 cap 09/24/17 release allopurinol 300 mg tablet 300 mg PO QDAY #90 tab 12/07/17 losartan 50 mg tablet 50 mg PO QDAY #90 tab 12/07/17 metoclopramide 5 mg tablet 5 mg PO QID #60 tab 01/11/18 Allergies Allergy/AdvReac Type Severity Reaction Status Date / Time dorzolamide [DORZOLAMIDE] Allergy Mild red eye Verified 01/14/18 22:41 NSAIDS (Non-Steroidal AdvReac Mild gi upset Verified 01/14/18 22:41 Anti-Inflamma [NSAIDS (NON-STEROIDAL ANTI-INFLAMMA] Review of Systems Review of Systems All systems reviewed & are unremarkable except as noted in HPI and below Constitutional Denies chills and Denies fever(s) Cardiovascular Denies chest pain and Denies dyspnea Respiratory Denies cough and Denies dyspnea Gastrointestinal Gastrointestinal: Denies abdominal pain, Denies change in bowel habits, Reports constipation, Denies diarrhea, Reports nausea, Reports vomiting, Denies hematemesis and Reports other (flatus) Genitourinary Denies difficulty with ejaculations PFSH Medical History Atrial fibrillation (Chronic ~1979) Cardiac arrhythmia (Chronic ~1979) Chronic back pain (Chronic ~1979) Diverticular disease (Chronic 2000) Foot pain (Chronic ~1999) Glaucoma (Chronic ~1989) Hearing loss (Chronic ~1989) Hypertension (Chronic ~1989) Rosacea (Chronic ~1999) Chicken pox (Resolved ~1939) Colon polyps (Resolved 08/12/12) GI bleeding (Resolved 2001) Measles (Resolved ~1939) Mumps (Resolved ~1939) Peptic ulcer disease (Resolved ~1989) Small bowel obstruction (Resolved 01/04/18) Tinnitus (Resolved ~1979) Surgical History Anesthesia (Resolved) History of colonoscopy with polypectomy (Resolved 08/12/12) History of incisional hernia repair (Resolved 2001) History of left inguinal hernia repair (Resolved 02/10/95) History of removal of cyst (Resolved 04/05/09) History of right inguinal hernia repair (Resolved 05/14/98) Status post appendectomy (Resolved 03/12/01) Status post colectomy (Resolved 03/12/01) Status post hernia repair Social History household members: spouse Smoking Status: Former smoker Exam Narrative Exam Narrative: GENERAL: Alert and oriented x three, well-nourished, well- appearing elderly male in mild distress. HEENT: Head normocephalic, atraumatic, EOMI, pupils reactive, face symmetric, moist mucous membranes NECK: Supple, full range of motion CARDIOVASCULAR: Regular rate and rhythm without murmurs, rubs or gallops. RESPIRATORY: Breath sounds equal bilaterally, no wheezes rales or rhonchi. ABDOMEN: Soft, nontender. Mildly tender. Hyperactive bowel sounds all 4 quadrants. No guarding or rebound, rigidity, no mass : No CVA tenderness EXTREMITIES: Normal range of motion, no clubbing or edema. Neurovascularly intact NEUROLOGICAL: Cranial nerves II through XII grossly intact. Moving all extremities SKIN: Warm, dry, no petechiae, no rashes or lesions. Initial Vital Signs Initial Vital Signs: Vital Signs Temperature 97.8 F 01/14/18 22:37 Pulse Rate 81 01/14/18 22:37 Respiratory Rate 16 01/14/18 22:37 Blood Pressure 144/79 H 01/14/18 22:37 Pulse Oximetry 100 01/14/18 22:37 Course Orders Ordered: ED Orders 01/14/18 23:59 CT abdomen pelvis w con Stat 01/15/18 03:36 MRSA PCR Routine 01/15/18 03:45 Urinalysis and Microscopic Routine 01/15/18 07:55 Basic Metabolic Panel Stat 01/15/18 08:23 Education, smoking cessation ONGOING 01/15/18 08:24 Consult to Physician Routine Sodium Chloride (Normal Saline 0.9%) 1,000 mls @ 150 mls/hr IV CONT RANDOLPH Last Admin: 01/15/18 03:51 Dose: 150 mls/hr Admin: 01/15/18 02:49 Dose: Not Given Discontinued Medications Sodium Chloride (Normal Saline 0.9%) 1,000 mls @ 1,000 mls/hr IV BOLUS ONE Stop: 01/14/18 23:52 Last Infusion: 01/15/18 00:10 Dose: 1,000 mls/hr Admin: 01/14/18 23:07 Dose: 1,000 mls/hr Ondansetron HCl (Zofran) 4 mg IV NOW ONE Stop: 01/14/18 22:54 Last Admin: 01/14/18 23:07 Dose: 4 mg Vital Signs - 8 hr 01/15/18 01:00 01/15/18 03:16 01/15/18 07:25 Temperature 98.1 F Pulse Rate 79 69 72 Respiratory Rate 16 16 18 Blood Pressure 111/73 124/54 L Blood Pressure [Left Arm] 113/61 Pulse Oximetry 98 99 99 MDM - Nausea/Vomiting/Diarrhea Lab Data Attestation: I reviewed the patient's lab results. Result diagrams: 01/14/18 23:00 01/15/18 07:55 Lab Results 01/14/18 01/14/18 01/14/18 Range/Units 23:00 23:00 23:00 WBC 7.6 (4.5-11.0) X10^3/uL RBC 4.89 (4.5-5.9) X10^6/uL Hgb 16.5 (13.5-17.5) g/dL Hct 48.1 (41-53) % MCV 98.4 (80-100) fL MCH 33.8 (26-34) PG MCHC 34.4 (30-36) % RDW 13.6 (11.6-14.8) % Plt Count 301 (150-400) X10^3/uL Neut % (Auto) 73.7 (50-75) % Lymph % (Auto) 13.7 L (25-40) % [place] % (Auto) 11.9 (3-14) % Eos % (Auto) 0.3 L (2-4) % Baso % (Auto) 0.4 (0-2) % Neut # (Auto) 5600 (6519-0970) /uL PT 16.3 H (10.1-12.7) SECONDS INR 1.5 H (0.9-1.3) APTT 34 (26.4-36.2) SECONDS Sodium 137 (137-145) mmol/L Potassium 3.5 (3.4-5.1) mmol/L Chloride 96 L (98-107) mmol/L Carbon Dioxide 23 (22-32) mmol/L BUN 23 H (9-20) mg/dL Creatinine 1.30 H (0.66-1.25) mg/dL Estimated GFR 53.4 L (>60) mL/min BUN/Creatinine Ratio 17.7 (6-22) Glucose 122 H (80-110) mg/dL Calcium 10.0 (8.4-10.2) mg/dL Total Bilirubin 1.2 (0.2-1.3) mg/dL AST 29 (17-59) IU/L ALT 38 (21-72) IU/L Alkaline Phosphatase 71 (38-126) U/L Total Protein 8.1 (6.3-8.2) g/dL Albumin 4.6 (3.5-5.0) g/dL Globulin 3.5 (1.7-4.1) g/dL Albumin/Globulin Ratio 1.3 (1.0-2.8) Urine Color Urine Appearance Urine pH (4.5-8.0) Ur Specific [place] (1.000-1.035) Urine Protein (Negative) Urine Glucose (UA) (Normal) g/dL Urine Ketones (NEGATIVE) Urine Occult Blood (Negative) Urine Nitrate (Negative) Urine Bilirubin (NEGATIVE) Urine Urobilinogen (0.2) E.U./dL Ur Leukocyte Esterase (NEGATIVE) Urine RBC (0-5/HPF) Urine WBC (0-5/HPF) Urine Bacteria (None) Ur Culture Indicated? Micro UA Comment Nasal Screen MRSA (PCR) (Negative) 01/15/18 01/15/18 01/15/18 Range/Units 03:36 03:45 07:55 WBC (4.5-11.0) X10^3/uL RBC (4.5-5.9) X10^6/uL Hgb (13.5-17.5) g/dL Hct (41-53) % MCV (80-100) fL MCH (26-34) PG MCHC (30-36) % RDW (11.6-14.8) % Plt Count (150-400) X10^3/uL Neut % (Auto) (50-75) % Lymph % (Auto) (25-40) % [place] % (Auto) (3-14) % Eos % (Auto) (2-4) % Baso % (Auto) (0-2) % Neut # (Auto) (3702-7459) /uL PT (10.1-12.7) SECONDS INR (0.9-1.3) APTT (26.4-36.2) SECONDS Sodium 138 (137-145) mmol/L Potassium 4.1 (3.4-5.1) mmol/L Chloride 98 (98-107) mmol/L Carbon Dioxide 25 (22-32) mmol/L BUN 21 H (9-20) mg/dL Creatinine 1.10 (0.66-1.25) mg/dL Estimated GFR > 60.0 (>60) mL/min BUN/Creatinine Ratio 19.1 (6-22) Glucose 108 (80-110) mg/dL Calcium 9.3 (8.4-10.2) mg/dL Total Bilirubin (0.2-1.3) mg/dL AST (17-59) IU/L ALT (21-72) IU/L Alkaline Phosphatase (38-126) U/L Total Protein (6.3-8.2) g/dL Albumin (3.5-5.0) g/dL Globulin (1.7-4.1) g/dL Albumin/Globulin Ratio (1.0-2.8) Urine Color Yellow Urine Appearance Clear Urine pH 5.5 (4.5-8.0) Ur Specific [place] <=1.005 (1.000-1.035) Urine Protein Trace H (Negative) Urine Glucose (UA) Negative (Normal) g/dL Urine Ketones Trace H (NEGATIVE) Urine Occult Blood Negative (Negative) Urine Nitrate Negative (Negative) Urine Bilirubin Negative (NEGATIVE) Urine Urobilinogen 0.2 (0.2) E.U./dL Ur Leukocyte Esterase Negative (NEGATIVE) Urine RBC None seen (0-5/HPF) Urine WBC 0-1/hpf (0-5/HPF) Urine Bacteria None seen (None) Ur Culture Indicated? Cult not indicated Micro UA Comment Not Reportable Nasal Screen MRSA (PCR) Negative for mrsa (Negative) Imaging Data CT scan - abdomen: Radiologist's impression: Results called to myself by Radiology, patient has a mid bowel SBO, similar to images on 01/04 with increase of dilation. There is also some decreased enhancement of the left pole concerning for renal infarct. [facility] Narrative Medical decision making narrative: Patient is feeling less nauseated after zofran. Plan to repeat CT as he is starting to have similar symptoms but clinically is clearly a bowel obstruction. Patient WBC is not elevated, his creatinine is elevated from 1-0.8 to 1.3 Um as well as his BUN which is 23. He does not any changes to his sodium or potassium. patient is being aggressively hydrated particularly as he has had contrast least twice in the last week. Patient stated that he has not noticed any decrease in urine output or dark urine. CT of the abdomen and pelvis show bowel obstruction and changes to the kidney concerning for possible renal infarct. Spoke with Dr. Zazueta with Nephrology. She states patient can follow up as an outpatient with a creatinine 1.3 this is not emergent need for evaluation. It is important to find out the reason which is likely embolic since he has been off his Eliquis was off his Eliquis. Spoke with Dr. perfecto lawrence, discussed Nephrology recommendations and plan for admission for small bowel obstruction. Patient is not currently actively vomiting so NG tube was not placed here in the ED. Discharge Plan Departure Patient Disposition: Admitted As Inpatient Clinical Impression: Small bowel obstruction Discharge Date/Time: 01/15/18 03:18 Interventions: ED Discharge Assessment Last Done: 01/15/18 03:16 Admit Date/Time: 01/15/18 03:01 Admit Provider: Shanique Vann
--- NOTE | 2018-01-14 23:59 | DI.CT.S_ITS ---
PROCEDURE: CT ABDOMEN PELVIS W CON INDICATIONS: vomiting, recent hospitalization for small bowel obstruction TECHNIQUE: After the administration of intravenous contrast, 5 mm thick sections acquired from the diaphragm to the symphysis. 5 mm coronal and sagittal reformats were acquired. For radiation dose reduction, the following was used: automated exposure control, adjustment of mA and/or kV according to patient size. COMPARISON: [facility], CT, CT ABDOMEN PELVIS W CON, 01/04/2018, 21:13. FINDINGS: Image quality: Excellent. ABDOMEN: Lung bases: Lung bases are clear. Heart size is normal. Solid organs: Liver is normal in size and enhancement. Gallbladder contracted otherwise unremarkable. Biliary system is non dilated. Pancreas enhances normally. Spleen is normal in size and enhancement. No adrenal nodules. There is a new area of decreased cortical enhancement seen in the posterior left kidney image 39 series 2. No hydronephrosis identified. Right kidney grossly unremarkable. Unchanged bilateral mild perinephric stranding, age-indeterminate. Peritoneum and bowel: Dilated small bowel loops as before, measuring up to 4 cm in diameter. There is interval progression since a prior study dated 01/04/18. Possible transition point in seen in the left abdomen image 69 series 2 although this is technically indeterminate. There also small bowel loops seen lateral to the left colon raising possibility of internal hernia. There are scattered air-fluid levels. Scattered colonic diverticula and surgical bowel anastomosis seen in the sigmoid colon. The rectum is grossly unremarkable. Nodes and vessels: No retroperitoneal or mesenteric adenopathy by size criteria. Aorta and inferior vena cava are normal in size. Miscellaneous: No ventral hernias. PELVIS: Genitourinary: The bladder is partially collapsed, otherwise unremarkable. There is questionable bladder wall thickening however this could be due to decompression recommend clinical correlation. Miscellaneous: No inguinal hernias or adenopathy. Bones: No suspicious bony lesions. There is diffuse osteopenia and multilevel discogenic changes. No vertebral body compression fractures. IMPRESSION: Interval progression of small bowel obstruction since 01/04/18. Possible left paramedian transition point although technically indeterminate. Also noted, are small bowel loops seen lateral to the left colon raising possibility of internal hernia. Please correlate clinically. Interval development of decreased cortical enhancement involving left renal posterior cortex, suggestive of pyelonephritis. Please correlate clinically and with urinalysis data. Circumferential mild bladder wall thickening raising the possibility of acute cystitis although this could be due to partially collapsed state. Dictated by: Thien Khoury M.D. on 01/15/2018 at 8:43 Approved by: Thien Khoury M.D. on 01/15/2018 at 9:44
[2018-01-15] VITALS (8 sets, daily range): BP systolic 111–141; BP diastolic 54–83; PULSE 69–84; RESP 16–18; TEMP 36.2–36.8; O2SAT 96–99; BMI 24.5
[2018-01-15] MEDS: SODIUM CHLORIDE 0.9% 1,000 ML 150 ML IV ×4 (03:51→23:41)
[2018-01-15 03:57] LABS: Bacteria Urine None Seen; RBC Urine None Seen (0-5/HPF)
[2018-01-15 04:10] LABS: Appearance Urine UA CLEAR; Bilirubin Urine UA NEGATIVE (NEGATIVE); Color Urine UA YELLOW; Glucose Urine UA NEGATIVE (Normal); Ketones Urine UA TRACE (NEGATIVE); Leukocyte Esterase Urine UA NEGATIVE (NEGATIVE); Nitrite Urine UA NEGATIVE (Negative); Occult Blood Urine UA NEGATIVE (Negative); Protein Urine UA TRACE (Negative); Specific Gravity Urine UA <=1.005 (1.000-1.035); Urobilinogen Urine UA 0.2 E.U./dL (0.2); pH Urine UA 5.5 (4.5-8.0)
[2018-01-15 04:27] LABS: Culture Indicated Urine Cult Not Indicated; WBC Urine 0-1/HPF (0-5/HPF)
--- NOTE | 2018-01-15 06:44 | PC.NURSE ---
01/15 0640; pt alert and oriented x4, vss on RA, denied pain this shift and denied GI discomfort outside of some bloating and mild distention. NPO and NS infusing.
[2018-01-15 08:15] LABS: BUN Creatinine Ratio 19.1 (6-22); Blood Urea Nitrogen 21 mg/dL (9-20); Calcium 9.3 mg/dL (8.4-10.2); Carbon Dioxide 25 mmol/L (22-32); Chloride 98 mmol/L (98-107); Estimated Glomerular Filt Rate > 60.0 mL/min (>60); Glucose 108 mg/dL (80-110); HEMOLYSIS < 15 (0-50); Potassium 4.1 mmol/L (3.4-5.1); Sodium 138 mmol/L (137-145)
--- NOTE | 2018-01-15 08:22 | P.HP_ITS ---
History of Present Illness Date Patient Seen: 01/15/18 Time Patient Seen: 08:15 Chief complaint: NAUSEA Narrative: Patient is a 77 yo male with recent admission for probably small bowel obstruction which improved with conservative management 5 days ago. He tells me that he did fine for 2 days after discharge but then after that he started feeling nauseous and transitioned back to a liquid diet. Symptoms continued to progress until last night when he was vomiting multiple episodes of green/brown fluid and had return of the pain he had previously in his abdomen. Per patient's report it wasn't clear at discharge whether he really did have an obstruction or something else. He was off of his eliquis for a number of days during the admission. Restarted about 3 days prior to discharge and he has continued this all week with last dose yesterday morning. His last bowel movement was day before yesterday and it was on the looser side with formed elements per patient. No blood or melana. His abdominal pain has improved overnight but he had a few pangs across his lower abdomen when he was up to urinate this morning which resolved on lying down again. Patient History Medical History Atrial fibrillation (Chronic ~1979) Cardiac arrhythmia (Chronic ~1979) Chronic back pain (Chronic ~1979) Diverticular disease (Chronic 2000) Foot pain (Chronic ~1999) Glaucoma (Chronic ~1989) Hearing loss (Chronic ~1989) Hypertension (Chronic ~1989) Rosacea (Chronic ~1999) Chicken pox (Resolved ~1940) Colon polyps (Resolved 08/12/12) GI bleeding (Resolved 2001) Measles (Resolved ~1940) Mumps (Resolved ~1940) Peptic ulcer disease (Resolved ~1989) Small bowel obstruction (Resolved 01/04/18) Tinnitus (Resolved ~1979) Surgical History Anesthesia (Resolved) History of colonoscopy with polypectomy (Resolved 08/12/12) History of incisional hernia repair (Resolved 2001) History of left inguinal hernia repair (Resolved 02/10/95) History of removal of cyst (Resolved 04/05/09) History of right inguinal hernia repair (Resolved 05/14/98) Status post appendectomy (Resolved 03/12/01) Status post colectomy (Resolved 01/04/02) Status post hernia repair Family & Social History Family History Family/Other No problems noted. Family/Other No problems noted. Family/Other No problems noted. Sister No problems noted. Father Alzheimer's disease Mother Stroke Social History: household members spouse Prior Living Arrangements House Safety & Behavioral: Feels Safe in Current Yes Environment Been Physically Hurt or No Threatened By a Person Suicidal Ideation Description None Suicide Plan Description No Plan Tobacco & Substance use: Smoking Status Former smoker alcohol intake frequency 0-2 drinks per day Substance Use Type does not use Meds Home Medications Medication Instructions Recorded Confirmed Type timolol maleate [Timoptic] 0.5 drp EYE-BOTH DAILY #0 01/02/11 01/14/18 History atorvastatin [Lipitor] 10 mg PO HS #50 tab 03/16/17 01/14/18 Rx omeprazole 20 mg capsule,delayed 20 mg PO DAILY #90 cap 09/24/17 01/14/18 Rx release allopurinol 300 mg tablet 300 mg PO QDAY #90 tab 12/07/17 01/14/18 Rx losartan 50 mg tablet 50 mg PO QDAY #90 tab 12/07/17 01/14/18 Rx apixaban [Eliquis] 5 mg PO BID 01/05/18 01/14/18 History metoclopramide 5 mg tablet 5 mg PO QID #60 tab 01/11/18 01/14/18 Rx Allergies Allergy/AdvReac Type Severity Reaction Status Date / Time dorzolamide [DORZOLAMIDE] Allergy Mild red eye Verified 01/14/18 22:41 NSAIDS (Non-Steroidal AdvReac Mild gi upset Verified 01/14/18 22:41 Anti-Inflamma [NSAIDS (NON-STEROIDAL ANTI-INFLAMMA] Review of Systems Constitutional Constitutional: Denies chills, Denies headache(s) and Reports lack of energy ENT Ears, Nose, Mouth, and Throat: No dizziness and No headache(s) Cardiovascular Cardiovascular: Denies chest pain, Denies fainting, Denies lightheadedness, Denies rapid, pounding, or irregular heartbeat and Denies shortness of breath Respiratory Respiratory: Denies chest congestion, Denies cough and Denies dyspnea Gastrointestinal Gastrointestinal: Reports abdominal pain, Reports bloating, Denies change in stool character, Denies constipation, Reports nausea, Reports vomiting and Denies hematemesis Genitourinary Genitourinary: Denies difficulty urinating and Denies dysuria Musculoskeletal Musculoskeletal: Reports system reviewed; no additional complaints, except as documented Integumentary/Breasts Skin/Breast: Reports system reviewed and no additional complaints, except as documented Neurologic Neurologic: Denies dizziness, Denies syncope and Denies headache(s) Endocrine Endocrine: Denies palpitations Exam Vital Signs (past 8 hours): - 01/15/18 01:00 01/15/18 03:16 01/15/18 07:25 Temperature 98.1 F Pulse Rate 79 69 72 Respiratory Rate 16 16 18 Blood Pressure 111/73 124/54 L Blood Pressure [Left Arm] 113/61 Pulse Oximetry 98 99 99 Oxygen Delivery Method Room Air Narrative Exam Narrative: GENERAL: Well-appearing, well-nourished and in no acute distress. HEENT: Head normocephalic, atraumatic. Eyes pupils equal round and reactive to light, extraocular movements intact, sclera anicteric, conjunctivae normal. Nares patent. Mucous membranes moist. NECK: Supple, full range of motion CHEST: Breath sounds equal bilaterally, no wheezes rales or rhonchi. CARDIAC: irRegular rate and rhythm without murmurs, rubs or gallops. ABDOMEN: Soft, not particularly tender. Tinkling bowel sounds in upper quadrants, bowel sounds lower quadrants. No guarding or rebound. EXTREMITIES: Normal range of motion, no clubbing or edema. NEUROLOGICAL: Cranial nerves II through XII grossly intact. Normal gait and speech. SKIN: Warm, dry, no petechiae, no rashes or lesions. Objective Imaging CT scan - abdomen: Radiologist's impression: Interval progression of small bowel obstruction since 01/04/18. Possible left paramedian transition point although technically indeterminate. Also noted, are small bowel loops seen lateral to the left colon raising possibility of internal hernia. Please correlate clinically. Interval development of decreased cortical enhancement involving left renal posterior cortex, suggestive of pyelonephritis. Please correlate clinically and with urinalysis data. Circumferential mild bladder wall thickening raising the possibility of acute cystitis although this could be due to partially collapsed state. Labs Result Diagrams: 01/14/18 23:00 01/15/18 07:55 Labs: Laboratory Results - last 24 hr 01/14/18 01/14/18 01/14/18 23:00 23:00 23:00 WBC 7.6 RBC 4.89 Hgb 16.5 Hct 48.1 MCV 98.4 MCH 33.8 MCHC 34.4 RDW 13.6 Plt Count 301 Neut % (Auto) 73.7 Lymph % (Auto) 13.7 L [place] % (Auto) 11.9 Eos % (Auto) 0.3 L Baso % (Auto) 0.4 Neut # (Auto) 5600 PT 16.3 H INR 1.5 H APTT 34 Sodium 137 Potassium 3.5 Chloride 96 L Carbon Dioxide 23 BUN 23 H Creatinine 1.30 H Estimated GFR 53.4 L BUN/Creatinine Ratio 17.7 Glucose 122 H Calcium 10.0 Total Bilirubin 1.2 AST 29 ALT 38 Alkaline Phosphatase 71 Total Protein 8.1 Albumin 4.6 Globulin 3.5 Albumin/Globulin Ratio 1.3 Urine Color Urine Appearance Urine pH Ur Specific [place] [facility] Urine Protein Urine Glucose (UA) Urine Ketones Urine Occult Blood Urine Nitrate Urine Bilirubin Urine Urobilinogen Ur Leukocyte Esterase Urine RBC Urine WBC Urine Bacteria Ur Culture Indicated? Micro UA Comment Nasal Screen MRSA (PCR) 01/15/18 01/15/18 03:36 03:45 WBC RBC Hgb Hct MCV MCH MCHC RDW Plt Count Neut % (Auto) Lymph % (Auto) [place] % (Auto) Eos % (Auto) Baso % (Auto) Neut # (Auto) PT INR APTT Sodium Potassium Chloride Carbon Dioxide BUN Creatinine Estimated GFR BUN/Creatinine Ratio Glucose Calcium Total Bilirubin AST ALT Alkaline Phosphatase Total Protein Albumin Globulin Albumin/Globulin Ratio Urine Color Yellow Urine Appearance Clear Urine pH 5.5 Ur Specific [facility] <=1.005 Urine Protein Trace H Urine Glucose (UA) Negative Urine Ketones Trace H Urine Occult Blood Negative Urine Nitrate Negative Urine Bilirubin Negative Urine Urobilinogen 0.2 Ur Leukocyte Esterase Negative Urine RBC None seen Urine WBC 0-1/hpf Urine Bacteria None seen Ur Culture Indicated? Cult not indicated Micro UA Comment Not Reportable Nasal Screen MRSA (PCR) Negative for mrsa Assessment & Plan Plan: Assessment/Plan Narrative: 77 yo male with return of small bowel obstruction transition point identifiable on CT scan now. 1. Appreciate surgeries involvement and recommendation for laprascopic intervention. Unfortunately none of the resident surgeons are available at this time and patient is not comfortable with a [facility] surgeon. Working with Johana Ac to facilitate transfer for surgical intervention. In the interim will place NG, hold anticoagulation expecting surgery tomorrow, NPO. 2. 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 No signs of infection on urine analysis. Discussed with nephrology at [facility] last night and follow up will be outpatient. 3. Atrial fibrillation. No rate control medications at baseline and is controlled currently. Will hold off on eliquis for surgery tomorrow. Needs to be back on anticoagulation as soon as possible after his surgery. 4. Hypertension. Has been normotensive so far. Will resume losartan should his blood pressures elevate. 5. Acute renal failure likely secondary to dehydration. Improved with fluids overnight. DVT prophylaxis: patient is ambulatory and SCD's. CODE status: full code Disposition: Hopefully he will transfer to [facility] sometime later this evening. He is acutely ill and requires surgery and will require more than 2 midnights hospitalization.
--- NOTE | 2018-01-15 11:21 | CM.DANOTE ---
Discharge Planning/Care Management DCP: assessment: case received, EMR reviewed and met with pt. Introduced self and role. Pt is a 77 year old male who admitted here to care of [facility] physician team. PCP: Dr. Ren Payer: Medicare and [facility]. READMIT: noted: pt was here 01/04 through 01/[address] Jauregui for conservative treatment of SBO. H&P in only partially completed and in draft. IAN Head confirms that pt is being treated for a s/s small bowel obstruction and that a consulting surgeon is expected to see pt today. P: follow prn as POC unfolds to assist with any d/c needs that may arise. CM Discharge Assessment Start: 01/15/18 11:20 Freq: Status: Active Protocol: Document 01/15/18 11:20 ITV (Rec: 01/15/18 11:21 ITV [id number]) Discharge Planning Assessment History Provided By Patient Medical Record Prior Living Arrangements House Household Members spouse Independent with ADL's Yes Is patient alert and oriented? Yes Transportation Arrangement Spouse Whiteboard Updated in Patient Room with Yes name and ext. # of Vessel Master Review Status In Process Next Review Type Continued Stay Review
--- NOTE | 2018-01-15 15:25 | P.CONS_ITS ---
History of Present Illness Date Patient Seen: 01/15/18 Chief complaint: NAUSEA Reason for consult: Bowel obstruction Requesting provider: Shanique Vann Narrative: 77 y/o male readmitted for nause and vomiting 5 days after discharge from hospital for similar symptoms. Patient previously admitted for presumed small bowel obstruction suggestive on non-oral contrast CT scan, but small bowel follow through study performed on 01/06/18 did not demonstrate obstruction , transit time was delayed at 5.5hrs and multiple loops of mildly dilated small bowel with air fluid levels. Patient was discharged after conservative treatment that did include NGT decompression. Nausea developed again 2 days after discharge with subsequent vomiting and abdominal pain with bloating leading to current admission. Pain mostly in lower abdomen, but none currently today. Patient last passed flatus yesterday morning. Patient restarted Eloquis 5 days ago, but last dose was yesterday morning. 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 [facility] Medical History Atrial fibrillation (Chronic ~1979) Cardiac arrhythmia (Chronic ~1979) Chronic back pain (Chronic ~1979) Diverticular disease (Chronic 2000) Foot pain (Chronic ~1999) Glaucoma (Chronic ~1989) Hearing loss (Chronic ~1989) Hypertension (Chronic ~1989) Rosacea (Chronic ~1999) Chicken pox (Resolved ~1940) Colon polyps (Resolved 08/12/12) GI bleeding (Resolved 2001) Measles (Resolved ~1940) Mumps (Resolved ~1940) Peptic ulcer disease (Resolved ~1989) Small bowel obstruction (Resolved 01/04/18) Tinnitus (Resolved ~1979) Surgical History Anesthesia (Resolved) History of colonoscopy with polypectomy (Resolved 08/12/12) History of incisional hernia repair (Resolved 2001) History of left inguinal hernia repair (Resolved 02/10/95) History of removal of cyst (Resolved 04/05/09) History of right inguinal hernia repair (Resolved 05/14/98) Status post appendectomy (Resolved 03/12/01) Status post colectomy (Resolved 03/12/01) Status post hernia repair Family History Family/Other No problems noted. Family/Other No problems noted. Family/Other No problems noted. Sister No problems noted. Father Alzheimer's disease Mother Stroke Social History household members: spouse Smoking Status: Former smoker Meds Home Medications Medication Instructions Recorded Confirmed Type timolol maleate [Timoptic] 0.5 drp EYE-BOTH DAILY #0 01/02/11 01/14/18 History atorvastatin [Lipitor] 10 mg PO HS #50 tab 03/16/17 01/14/18 Rx omeprazole 20 mg capsule,delayed 20 mg PO DAILY #90 cap 09/24/17 01/14/18 Rx release allopurinol 300 mg tablet 300 mg PO QDAY #90 tab 12/07/17 01/14/18 Rx losartan 50 mg tablet 50 mg PO QDAY #90 tab 12/07/17 01/14/18 Rx apixaban [Eliquis] 5 mg PO BID 01/05/18 01/14/18 History metoclopramide 5 mg tablet 5 mg PO QID #60 tab 01/11/18 01/14/18 Rx Allergies Allergy/AdvReac Type Severity Reaction Status Date / Time dorzolamide [DORZOLAMIDE] Allergy Mild red eye Verified 01/14/18 22:41 NSAIDS (Non-Steroidal AdvReac Mild gi upset Verified 01/14/18 22:41 Anti-Inflamma [NSAIDS (NON-STEROIDAL ANTI-INFLAMMA] Review of Systems Review of Systems All systems reviewed & are unremarkable except as noted in HPI and below Exam Vital Signs (past 8 hours): - 01/15/18 07:25 01/15/18 11:41 Temperature 98.1 F 97.9 F Pulse Rate 72 83 Respiratory Rate 18 16 Blood Pressure 124/54 L 120/64 Pulse Oximetry 99 96 Oxygen Delivery Method Room Air Const General: cooperative, healthy appearing, comfortable and well developed [facility] Head: normocephalic and atraumatic Eyes Sclera: sclerae normal Neck Neck: trachea midline and supple Chest Chest: normal inspection of the chest Resp Effort & Inspection: normal respiratory effort Cardio Rhythm: abnormal rhythm GI Inspection: scar (long midline, no hernia) Palpation: soft (protuberant, not tender) Neuro General: alert and awake Cognition: normal cognition Speech: speech normal Psych Appearance: grossly normal Mood: congruent mood Affect: normal affect Attitude: cooperative Thought Content: normal Judgment: judgment good Objective Labs Result Diagrams: 01/14/18 23:00 01/15/18 07:55 Labs: Laboratory Results - last 24 hr 01/14/18 01/14/18 01/14/18 23:00 23:00 23:00 WBC 7.6 RBC 4.89 Hgb 16.5 Hct 48.1 MCV 98.4 MCH 33.8 MCHC 34.4 RDW 13.6 Plt Count 301 Neut % (Auto) 73.7 Lymph % (Auto) 13.7 L [place] % (Auto) 11.9 Eos % (Auto) 0.3 L Baso % (Auto) 0.4 Neut # (Auto) 5600 PT 16.3 H INR 1.5 H APTT 34 Sodium 137 Potassium 3.5 Chloride 96 L Carbon Dioxide 23 BUN 23 H Creatinine 1.30 H Estimated GFR 53.4 L BUN/Creatinine Ratio 17.7 Glucose 122 H Calcium 10.0 Total Bilirubin 1.2 AST 29 ALT 38 Alkaline Phosphatase 71 Total Protein 8.1 Albumin 4.6 Globulin 3.5 Albumin/Globulin Ratio 1.3 Urine Color Urine Appearance Urine pH Ur Specific [place] Urine Protein Urine Glucose (UA) Urine Ketones Urine Occult Blood Urine Nitrate Urine Bilirubin Urine Urobilinogen Ur Leukocyte Esterase Urine RBC Urine WBC Urine Bacteria Ur Culture Indicated? Micro UA Comment Nasal Screen MRSA (PCR) 01/15/18 01/15/18 01/15/18 03:36 03:45 07:55 WBC RBC Hgb Hct MCV MCH MCHC RDW Plt Count Neut % (Auto) Lymph % (Auto) [place] % (Auto) Eos % (Auto) Baso % (Auto) Neut # (Auto) PT INR APTT Sodium 138 Potassium 4.1 Chloride 98 Carbon Dioxide 25 BUN 21 H Creatinine 1.10 Estimated GFR > 60.0 BUN/Creatinine Ratio 19.1 Glucose 108 Calcium 9.3 Total Bilirubin AST ALT Alkaline Phosphatase Total Protein Albumin Globulin Albumin/Globulin Ratio Urine Color Yellow Urine Appearance Clear Urine pH 5.5 Ur Specific [place] <=1.005 Urine Protein Trace H Urine Glucose (UA) Negative Urine Ketones Trace H Urine Occult Blood Negative Urine Nitrate Negative Urine Bilirubin Negative Urine Urobilinogen 0.2 Ur Leukocyte Esterase Negative Urine RBC None seen Urine WBC 0-1/hpf Urine Bacteria None seen Ur Culture Indicated? Cult not indicated Micro UA Comment Not Reportable Nasal Screen MRSA (PCR) Negative for mrsa CT scan abd/pelvis IMPRESSION: Interval progression of small bowel obstruction since 01/04/18. Possible left paramedian transition point although technically indeterminate. Also noted, are small bowel loops seen lateral to the left colon raising possibility of internal hernia. Please correlate clinically. Interval development of decreased cortical enhancement involving left renal posterior cortex, suggestive of pyelonephritis. Please correlate clinically and with urinalysis data. Circumferential mild bladder wall thickening raising the possibility of acute cystitis although this could be due to partially collapsed state. Assessment & Plan Plan: Assessment/Plan Narrative: Readmission for nausea and vomiting. Imaging from previous admission and current suggestive of PSBO. Doubt ileus due to urinary tract infection as UA not suggestive of infection, patient not presenting with fever/chills and WBC not elevated. Doubt apical renal infarct causing ileus. Suspect possible PSBO due to adhesions from previous surgery. Offered patient diagnostic laparoscopy with possible adhesiolysis if indicated. Did also disclose that I would only be at this facility until thursday morning, therefore continuity of care with me would be limited. Patient and wanted to discuss options. Was later informed by Dr. Vann that patient has elected transfer to [facility]. Time Spent With Patient Time with patient: Greater than 35 minutes
--- NOTE | 2018-01-15 17:16 | PC.NURSE ---
1630- NGT placed per order. Patient tolerated well. Copious amount of stomach contents approximately 2 liters of green bile. Patient had a small nose bleed after insertion and that promptly resolved. Patient is requesting transfer to [facility] awaiting acceptance. Will monitor.
[2018-01-16 03:22] VITALS: O2SAT 97
[2018-01-16 03:41] VITALS: BP 139/76; PULSE 78; RESP 21; TEMP 36.4; O2SAT 97
[2018-01-16 05:12] LABS: Add Manual Diff / Slide Review NO; Basophils Percent Auto 0.5 % (0-2); Eosinophils Percent Auto 0.6 % (2-4); Hematocrit 46.1 % (41-53); Hemoglobin 15.3 g/dL (13.5-17.5); Lymphocytes Percent Auto 11.5 % (25-40); Mean Corpuscular HGB Conc 33.2 % (30-36); Mean Corpuscular Hemoglobin 33.3 PG (26-34); Mean Corpuscular Volume 100.2 fL (80-100); Monocytes Percent Auto 12.3 % (3-14); Neutrophils Absolute Auto 7300 /uL (3000-5900); Neutrophils Percent Auto 75.1 % (50-75); Platelet Count 274 X10^3/uL (150-400); Red Cell Distribution Width 13.6 % (11.6-14.8); White Blood Cell Count 9.7 X10^3/uL (4.5-11.0)
[2018-01-16 05:26] LABS: Blood Urea Nitrogen 16 mg/dL (9-20); Calcium 8.2 mg/dL (8.4-10.2); Carbon Dioxide 22 mmol/L (22-32); Chloride 103 mmol/L (98-107); Estimated Glomerular Filt Rate > 60.0 mL/min (>60); Glucose 86 mg/dL (80-110); HEMOLYSIS 19 (0-50); Potassium 3.4 mmol/L (3.4-5.1); Sodium 139 mmol/L (137-145)
[2018-01-16] MEDS: SODIUM CHLORIDE 0.9% 1,000 ML 150 ML IV (06:09)
--- NOTE | 2018-01-16 06:41 | PC.NURSE ---
Patient has been calm, denies abdominal pain or nausea, approximately 1700ml bile output into NGT. A-fib/flutter CVR, had few brief episodes of 2-3 second pauses around 0300, VSS, asymptomatic, having frequent PVCs.
[2018-01-16 07:19] VITALS: BP 140/88; PULSE 72; RESP 17; TEMP 36.2
[2018-01-16 08:43] VITALS: O2SAT 97
--- NOTE | 2018-01-16 09:55 | P.PN_ITS ---
Subjective Date Patient Seen: 01/16/18 Time Patient Seen: 09:51 Interval history: Patient is feeling improved. He is less bloated and uncomfortable. Did pass some gas this morning. Concerned about getting his glaucoma eye drops Has absolutely no appetite Has consulted with family members including a physician in [place] who all recommend he be transferred to a [facility] preferably [facility] for surgery. Exam Vital Signs (past 8 hours): - 01/16/18 03:22 01/16/18 03:41 01/16/18 07:19 Temperature 97.5 F L 97.1 F L Pulse Rate 78 72 Respiratory Rate 21 17 Blood Pressure 139/76 140/88 Pulse Oximetry 97 97 Oxygen Delivery Method Room Air Narrative Exam Narrative: Lungs-clear anterior posteriorly Heart-irregular regular rate and rhythm Abdomen-soft nontender nondistended no bowel tones no rebound or guarding Objective Labs Result Diagrams: 01/16/18 04:45 01/16/18 04:45 Labs: Laboratory Results - last 24 hr 01/16/18 01/16/18 04:45 04:45 WBC 9.7 RBC 4.60 Hgb 15.3 Hct 46.1 MCV 100.2 H MCH 33.3 MCHC 33.2 RDW 13.6 Plt Count 274 Neut % (Auto) 75.1 H Lymph % (Auto) 11.5 L [place] % (Auto) 12.3 Eos % (Auto) 0.6 L Baso % (Auto) 0.5 Neut # (Auto) 7300 H Sodium 139 Potassium 3.4 Chloride 103 Carbon Dioxide 22 BUN 16 Creatinine 0.80 Estimated GFR > 60.0 BUN/Creatinine Ratio 20.0 Glucose 86 Calcium 8.2 L Assessment & Plan Plan: Assessment/Plan Narrative: 1. Small bowel obstruction-patient's white count remains normal remains afebrile. However he has put out in excess of 4 L via his NG tube since it was placed late afternoon around 1600 yesterday. It continues to put out consistent volume. This suggests to me that he does have a very high-grade obstruction and my mind is less likely to resolve on his own. Does not show evidence of toxic changes at this point. His desire is to go to [facility] for surgery if surgery is required in [facility] consult surgeon as well as the physician I spoke to on the phone yesterday think it is highly likely will require surgery. That would be my opinion as well Therefore will continue plans trying get him to [place] for definitive care. He will remain off his anticoagulation for now course. 2. AFib-patient is rate controlled at this time. Continue off of his anticoagulation in preparation for presume surgical intervention 3. Glaucoma-will resume his timolol eyedrops
[2018-01-16] MEDS: TIMOLOL 0.5% OPHTH 1 DROPS EYE-BOTH (10:10)
[2018-01-16] MEDS: LACTATED RINGERS 1,000 ML 200 ML IV (11:56)
[2018-01-16 12:15] VITALS: BP 123/85; PULSE 91; RESP 17; TEMP 36.6; O2SAT 97
--- NOTE | 2018-01-16 13:00 | CM.DPC ---
DCP Cont: Spoke to patient. He is to be transferred to [facility]. Patient's transportation will cost $3000.00. He is aware of this. He was questioning signing Medicare form. He stated, Am I really being discharged, I thought I was just being transferred to another hospital. Explained to patient that he is discharge from this hospital, but other hospital will resume care. Patient did sign form. P: Patient is to be transferred to [facility] today, via [facility]ulence. Krystal Amaya RN/Instructional Design Manager
--- NOTE | 2018-01-16 13:49 | PC.NURSE ---
Day Shift Note Patient transferred to [facility] via ambulance 1345. Pt aware that due to his insurance and the fact that his transfer is per his request that he will be responsible to cover ambulance transport out of pocket - still wished to proceed with transfer. NG tube clamped for transport and saline locked. Denies nausea, denies pain. SBA in room. Report given to Solange at transfer center who will pass on to receiving nurse - no further report needed. Information packet with patient.
--- NOTE | 2018-01-17 10:54 | PM.DS.1 ---
History of Present Illness Date Patient Seen: 01/16/18 Time Patient Seen: 10:54 Chief complaint: NAUSEA Narrative: Patient is a 77 yo male with recent admission for probably small bowel obstruction which improved with conservative management 5 days ago. He tells me that he did fine for 2 days after discharge but then after that he started feeling nauseous and transitioned back to a liquid diet. Symptoms continued to progress until last night when he was vomiting multiple episodes of green/brown fluid and had return of the pain he had previously in his abdomen. Per patient's report it wasn't clear at discharge whether he really did have an obstruction or something else. He was off of his eliquis for a number of days during the admission. Restarted about 3 days prior to discharge and he has continued this all week with last dose yesterday morning. His last bowel movement was day before yesterday and it was on the looser side with formed elements per patient. No blood or melana. His abdominal pain has improved overnight but he had a few pangs across his lower abdomen when he was up to urinate this morning which resolved on lying down again. Discharge Providers Date of admission: 01/15/18 03:01 Primary care physician: Angel Ren MD Consults: 01/15/18 08:24 Consult to Physician Routine Comment: Consulting Provider: David Allen Reason for consultation: small bowel obstruction Has provider been notified: Yes Discharge provider: Chance Weber MD Discharge Date: 01/16/18 Summary Discharge Diagnosis: 1. Small bowel obstruction 2. Chronic atrial fibrillation 3. Chronic long-term use of anticoagulation 4. Glaucoma 5. Hypertension Hospital Course: Patient was admitted to the hospital floor with recurrent symptoms and findings consistent with small-bowel obstruction. CT scan confirmed a left lower quadrant source of his obstruction likely due to scar tissue from prior sigmoid colectomy Patient was recommended to have surgery but he did not feel like that was something he should undertake at [facility] for variety of reasons that her previously documented. He requested transfer to [facility] for definitive therapy. After discussion with surgery staff there it was elected to transfer him on the morning of the . Patient was clinically stable with large volume NG output but hemodynamically otherwise unremarkable. He was afebrile and had normal white count x2. His exam was also benign improved after NG decompression Status at Discharge Cognitive/behavioral status at discharge: Baseline Functional status at discharge: independent ambulation Overall status at discharge: patient is progressing back to baseline Exam Vital Signs (past 8 hours): Oxygen Delivery Method Room Air Oxygen Flow Rate 0 Objective Labs Result Diagrams: 01/16/18 04:45 01/16/18 04:45 Discharge Plan Discharge Plan Patient Disposition: [facility] Other facility: [facility] Discharge Med Rec/Prescriptions Prescriptions: No Action timolol maleate [Timoptic] 0.5 % drops 1 drp EYE-BOTH DAILY Qty: 0 RF: 0 atorvastatin [Lipitor] 20 MG tablet 10 mg PO HS Qty: 50 RF: 3 omeprazole 20 mg capsule,delayed release(DR/EC) 20 mg PO DAILY Qty: 90 RF: 3 allopurinol 300 mg tablet 300 mg PO QDAY Qty: 90 RF: 0 losartan 50 mg tablet 50 mg PO QDAY Qty: 90 RF: 0 metoclopramide HCl 5 mg tablet 5 mg PO QID Qty: 60 RF: 5 apixaban [Eliquis] 5 mg tablet 5 mg PO BID RF: 0 Follow up/Referrals: Agnel Ren MD [Primary Care Provider] - Discharge Orders: Discharge (Order); Ordered 01/16/18 Ordered By: Chance Weber Discharge Data Primary Care Provider: Angel Ren Attending Provider: Shanique Vann Admit Date/Time: 01/15/18 03:01 Discharges patient from system. Discharge Date/Time: 01/16/18 13:45
== END 2018-01-16 13:45 | disposition short-term general hospital (02) | DRG 389 ==
LOC: ED 22:53 → ICU 01-15 05:28
PROVIDERS: Internal Medicine; Admitting Provider Family Medicine; Emergency Provider Emergency Medicine; Family Provider Family Medicine; PCP Family Medicine; Visit Provider Family Medicine
DX: K56.609 Unspecified intestinal obstruction, unspecified as to partial versus complete obstruction (principal); N28.0 Ischemia and infarction of kidney; N17.9 Acute kidney failure, unspecified; I48.2 Chronic atrial fibrillation; I10 Essential (primary) hypertension; Z87.891 Personal history of nicotine dependence; E86.0 Dehydration; H40.9 Unspecified glaucoma; Z79.01 Long term (current) use of anticoagulants; E78.5 Hyperlipidemia, unspecified; K21.9 Gastro-esophageal reflux disease without esophagitis
CPT/HCPCS: 36415; 36591; 74177; 80048; 80053; 81001; 85025; 85610; 85730; 87797; 96361; 96374; 99233; 99238; 99283; 99285; J2405; Q9967

== ENCOUNTER → 2018-04-06 14:56 | Outpatient (CLI) | payer MEDICARE, SELFPAY ==
[2018-01-15 03:29] VITALS: BMI 24.5
== END ==
PROVIDERS: Family Provider Family Medicine; PCP Family Medicine; Visit Provider Physician Assistant
DX: L60.8 Other nail disorders (principal)
CPT/HCPCS: 87077; 87102

== ENCOUNTER → 2018-12-13 11:02 | Outpatient (CLI) | payer MEDICARE, SELFPAY ==
[2018-01-15 03:29] VITALS: BMI 24.5
[2018-12-13 12:09] LABS: Hematocrit 43.1 % (41-53); Hemoglobin 14.4 g/dL (13.5-17.5); Mean Corpuscular HGB Conc 33.4 % (30-36); Mean Corpuscular Hemoglobin 33.4 PG (26-34); Platelet Count 202 X10^3/uL (150-400); Red Blood Cell Count 4.31 X10^6/uL (4.5-5.9); Red Cell Distribution Width 14.6 % (11.6-14.8); White Blood Cell Count 5.3 X10^3/uL (4.5-11.0)
[2018-12-13 12:20] LABS: HEMOLYSIS < 15 (0-50); Iron 97 ug/dL (49-181); Neutrophils Absolute Manual 3710 /uL (3000-5900); RBC Morphology Normal Morphology; Total Cells Counted 100
[2018-12-13 12:25] LABS: Alanine Aminotransferase 22 IU/L (21-72); Albumin Globulin Ratio 1.3 (1.0-2.8); Alkaline Phosphatase 62 U/L (38-126); Aspartate Aminotransferase 29 IU/L (17-59); BUN Creatinine Ratio 17.5 (6-22); Bilirubin Total 0.9 mg/dL (0.2-1.3); Blood Urea Nitrogen 14 mg/dL (9-20); Carbon Dioxide 29 mmol/L (22-32); Chloride 102 mmol/L (98-107); Estimated Glomerular Filt Rate > 60.0 mL/min (>60); Globulin 3.1 g/dL (1.7-4.1); Glucose 83 mg/dL (80-110); HEMOLYSIS < 15 (0-50); Potassium 4.4 mmol/L (3.4-5.1); Sodium 139 mmol/L (137-145); Total Protein 7.1 g/dL (6.3-8.2)
[2018-12-13 12:31] LABS: Percent Iron Saturation 31 % (20-50); Total Iron Binding Capacity 317 ug/dL (261-462); Transferrin 252 mg/dL (206-381)
[2018-12-13 13:30] LABS: Folate 9.3 ng/mL (2.76-20.0); Vitamin B12 275 pg/mL (239-931)
[2018-12-16 20:20] LABS: ANA Screen, IFA NEGATIVE (NEGATIVE)
[2018-12-21 21:49] LABS: Albumin 3.6 g/dL (3.8-4.8); Alpha 1 Globulin 0.3 g/dL (0.2-0.3); Alpha 2 Globulin 0.7 g/dL (0.5-0.9); Beta 1 Globulin 0.4 g/dL (0.4-0.6); Protein, Total 6.3 g/dL (6.1-8.1)
== END ==
PROVIDERS: PCP Internal Medicine; Visit Provider Internal Medicine
DX: K12.30 Oral mucositis (ulcerative), unspecified (principal); R21 Rash and other nonspecific skin eruption
CPT/HCPCS: 36415; 80053; 82607; 82746; 82784; 83540; 83550; 84155; 84165; 85025; 86038; 86334

== ENCOUNTER → 2019-01-18 12:35 | Outpatient (CLI) | payer MEDICARE, SELFPAY ==
[2018-01-15 03:29] VITALS: BMI 24.5
[2019-01-18 13:01] LABS: Add Manual Diff / Slide Review NO; Basophils Absolute Auto 100 /uL (0-100); Basophils Percent Auto 1.3 % (0-2); Eosinophils Absolute Auto 100 /uL (0-450); Eosinophils Percent Auto 2.4 % (2-4); Hematocrit 44.8 % (41-53); Hemoglobin 15.2 g/dL (13.5-17.5); Lymphocytes Absolute Auto 1400 /uL (1100-4500); Lymphocytes Percent Auto 25.4 % (25-40); Mean Corpuscular HGB Conc 33.9 % (30-36); Mean Corpuscular Hemoglobin 33.9 PG (26-34); Mean Corpuscular Volume 100.1 fL (80-100); Monocytes Absolute Auto 700 /uL (0-900); Monocytes Percent Auto 12.8 % (3-14); Neutrophils Absolute Auto 3200 /uL (1500-7000); Neutrophils Percent Auto 58.1 % (50-75); Platelet Count 196 X10^3/uL (150-400); Red Blood Cell Count 4.47 X10^6/uL (4.5-5.9); Red Cell Distribution Width 14.1 % (11.6-14.8); White Blood Cell Count 5.5 X10^3/uL (4.5-11.0)
== END ==
PROVIDERS: PCP Internal Medicine; Visit Provider Internal Medicine
DX: R88.8 Abnormal findings in other body fluids and substances (principal)
CPT/HCPCS: 36415; 85025

== ENCOUNTER → 2019-07-28 08:38 | Outpatient (CLI) | payer MEDICARE, SELFPAY ==
[2018-01-15 03:29] VITALS: BMI 24.5
--- NOTE | 2019-07-28 | DI.RAD.S_ITS ---
PROCEDURE: XR SHOULDER RT MIN 2V INDICATIONS: RIGHT SHOULDER PAIN TECHNIQUE: 3 views of the shoulder were acquired. COMPARISON: None. FINDINGS: Bones: No fractures or dislocations there is moderately severe right a.c. joint osteoarthritis. No suspicious bony lesions. Visualized ribs appear intact. Soft tissues: No suspicious soft tissue calcifications. IMPRESSION: Moderately severe right a.c. joint osteoarthritis, moderate glenohumeral joint osteoarthritis, no abnormal subluxation. Dictated by: Enmanuel Trujillo M.D. on 07/28/2019 at 9:09 Approved by: Enmanuel Trujillo M.D. on 07/28/2019 at 9:09
[2019-07-28 11:13] LABS: Alanine Aminotransferase 14 IU/L (<50); Albumin 4.4 g/dL (3.5-5.0); Albumin Globulin Ratio 1.4 (1.0-2.8); Alkaline Phosphatase 72 U/L (38-126); Aspartate Aminotransferase 28 IU/L (17-59); BUN Creatinine Ratio 17.1 (6-22); Bilirubin Total 1.2 mg/dL (0.2-1.3); Blood Urea Nitrogen 14 mg/dL (9-20); Calcium 9.5 mg/dL (8.4-10.2); Carbon Dioxide 27 mmol/L (22-32); Chloride 101 mmol/L (98-107); Cholesterol 156 mg/dL (140-199); Estimated Glomerular Filt Rate > 60.0 mL/min (>60); Globulin 3.2 g/dL (1.7-4.1); Glucose 111 mg/dL (80-110); HDL Cholesterol 38 mg/dL (40-60); HEMOLYSIS < 15 (0-50); LDL Cholesterol Calculated 89 mg/dL (<100); Potassium 4.5 mmol/L (3.4-5.1); Sodium 139 mmol/L (137-145); Total Protein 7.6 g/dL (6.3-8.2); Triglycerides 143 mg/dL (35-150); Uric Acid 4.2 mg/dL (3.5-8.5)
[2019-07-28 12:00] LABS: Vitamin B12 617 pg/mL (239-931)
[2019-07-28 12:45] LABS: Add Manual Diff / Slide Review NO; Basophils Absolute Auto 0 /uL (0-100); Eosinophils Absolute Auto 100 /uL (0-450); Eosinophils Percent Auto 3.1 % (2-4); Hematocrit 45.8 % (41-53); Hemoglobin 15.8 g/dL (13.5-17.5); Lymphocytes Absolute Auto 1300 /uL (1100-4500); Lymphocytes Percent Auto 25.9 % (25-40); Mean Corpuscular HGB Conc 34.4 % (30-36); Mean Corpuscular Hemoglobin 34.7 PG (26-34); Mean Corpuscular Volume 100.8 fL (80-100); Monocytes Absolute Auto 500 /uL (0-900); Monocytes Percent Auto 9.4 % (3-14); Neutrophils Absolute Auto 2900 /uL (1500-7000); Neutrophils Percent Auto 60.6 % (50-75); Platelet Count 199 X10^3/uL (150-400); Red Blood Cell Count 4.54 X10^6/uL (4.5-5.9); Red Cell Distribution Width 13.9 % (11.6-14.8); White Blood Cell Count 4.9 X10^3/uL (4.5-11.0)
[2019-07-28 13:19] LABS: TSH w/ Reflex to FT4 1.47 uIU/mL (0.47-4.68)
== END ==
PROVIDERS: PCP Internal Medicine; Referring Provider Internal Medicine; Visit Provider Internal Medicine
DX: M25.511 Pain in right shoulder (principal); M19.011 Primary osteoarthritis, right shoulder; I10 Essential (primary) hypertension; E78.5 Hyperlipidemia, unspecified; M10.9 Gout, unspecified; E53.8 Deficiency of other specified B group vitamins; R88.8 Abnormal findings in other body fluids and substances
CPT/HCPCS: 36415; 73030; 80053; 80061; 82607; 84443; 84550; 85025

== ENCOUNTER → 2019-12-05 09:09 | Outpatient (CLI) | payer MEDICARE, SELFPAY ==
[2018-01-15 03:29] VITALS: BMI 24.5
[2019-12-05 10:50] LABS: Hemoglobin A1C% w Est Avg Glu 5.8 % (4.0-6.0)
[2019-12-05 10:52] LABS: BUN Creatinine Ratio 14.1 (6-22); Blood Urea Nitrogen 13 mg/dL (9-20); Calcium 8.7 mg/dL (8.4-10.2); Carbon Dioxide 30 mmol/L (22-32); Chloride 102 mmol/L (98-107); Estimated Glomerular Filt Rate > 60.0 mL/min (>60); Glucose 103 mg/dL (80-110); HEMOLYSIS < 15 (0-50); Potassium 4.2 mmol/L (3.4-5.1); Sodium 139 mmol/L (137-145)
== END ==
PROVIDERS: PCP Internal Medicine; Referring Provider Internal Medicine; Visit Provider Internal Medicine
DX: R73.9 Hyperglycemia, unspecified (principal)
CPT/HCPCS: 36415; 80048; 83036

== ENCOUNTER → 2019-12-15 13:08 | Outpatient (CLI) | payer MEDICARE, SELFPAY ==
[2018-01-15 03:29] VITALS: BMI 24.5
--- NOTE | 2019-12-15 | DI.RAD.S_ITS ---
PROCEDURE: XR DEXA AXIAL SKELETON INDICATIONS: LONG H/O PPI HX DUE TO PREMALIGNANT CHANGES COMPARISON: None. FINDINGS: This blank DEXA report has been sent in error by the PACS system. The correct and complete report will be forthcoming in 1-2 days. Thank you for your patience and understanding. Dictated by: Mariola Mcgregor MD, PhD on 12/15/2019 at 16:21 Approved by: Mariola Mcgregor MD, PhD on 12/15/2019 at 16:26
== END ==
PROVIDERS: PCP Internal Medicine; Referring Provider Internal Medicine; Visit Provider Internal Medicine
DX: K21.00 Gastro-esophageal reflux disease with esophagitis, without bleeding (principal); Z79.899 Other long term (current) drug therapy; Z87.891 Personal history of nicotine dependence
CPT/HCPCS: 77080

== ENCOUNTER 2020-06-18 14:43 | Emergency (ER) | payer MEDICARE, SELFPAY ==
[2018-01-15 03:29] VITALS: BMI 24.5
[2020-06-18 15:05] VITALS: BP 166/92; PULSE 60; RESP 15; TEMP 36.3; O2SAT 97; BMI 25.7
--- NOTE | 2020-06-18 18:09 | PC.NURSE ---
second attempt to find patient in waiting room.. patinet not in waiting room.
== END 2020-06-18 18:14 | disposition left against medical advice (07) ==
PROVIDERS: Emergency Provider Emergency Medicine; PCP Internal Medicine
CPT/HCPCS: 99281

== ENCOUNTER 2021-01-13 07:46 | Emergency (ER) | payer MEDICARE, SELFPAY ==
[2018-01-15 03:29] VITALS: BMI 24.5
--- NOTE | 2021-01-13 08:06 | DI.RAD.S_ITS ---
PROCEDURE: XR RIBS LT MIN 3V W CXR1V INDICATIONS: fall on thinners TECHNIQUE: 2 views of the left ribs were acquired, along with a single view chest. COMPARISON: None. FINDINGS: Surgical changes and devices: A left upper quadrant clips can be seen. Bones and chest wall: A marker is placed upon the area of clinical concern. Within this region, no displaced rib fracture or other significant rib abnormality can be seen. No rib fractures are seen elsewhere. No suspicious bony lesions. Age-appropriate bony degenerative changes are seen. Overlying soft tissues appear unremarkable. Lungs and pleura: No pleural effusions or pneumothorax. Lungs appear clear. Mediastinum: Mediastinal contours appear normal. Heart size is normal. IMPRESSION: No displaced rib fracture can be seen. No pneumothorax. Dictated by: Sukhi Barahona M.D. on 01/13/2021 at 7:50 Approved by: Sukhi Barahona M.D. on 01/13/2021 at 7:51
[2021-01-13 08:09] VITALS: BP 184/96; PULSE 66; RESP 18; TEMP 36.6; O2SAT 98
--- NOTE | 2021-01-13 08:11 | ED.FALL ---
HPI - Fall General Chief Complaint: Trauma Stated Complaint: Fell- landed on LT ribs. Taking blood thinners Time Seen by Provider: 01/13/21 07:59 History of Present Illness HPI Narrative: Patient is a 80-year-old male history of atrial fibrillation on Eliquis presenting after fall last evening. He states he was standing on a small step stool trying to hang o'clock over a sink with a stepstool suddenly went out from under him on his ribs landed on the counter. He did not hit his head or lose consciousness he has no neck pain. But the his left ribs hurt every time he breathes or moves. He has taken Tylenol throughout the night and his last dose was at around 6:30 a.m.. He has felt nauseous off and on. He has no abdominal pain or shortness of breath. Related Data Home Medications Medication Instructions Recorded Confirmed timolol maleate 0.5 % eye drops 1 drp EYE-BOTH DAILY #0 01/02/11 01/16/18 (Timoptic) Previous Rx's Medication Instructions Recorded omeprazole 20 mg capsule,delayed 20 mg PO DAILY #90 cap 09/24/17 release metoclopramide HCl 5 mg tablet 5 mg PO QID #60 tab 01/11/18 apixaban 5 mg tablet (Eliquis) 5 mg PO BID #180 tab 03/24/18 atorvastatin 20 mg tablet (Lipitor) 10 mg PO HS #50 tab 04/13/18 losartan 50 mg tablet 50 mg PO QDAY #90 tab 05/11/18 allopurinol 300 mg tablet 300 mg PO QDAY #60 tab 05/31/18 hydrocodone 5 mg-acetaminophen 325 1 tab PO Q6H PRN #10 tab 01/13/21 mg tablet Allergies Allergy/AdvReac Type Severity Reaction Status Date / Time dorzolamide [DORZOLAMIDE] Allergy Mild red eye Verified 01/13/21 08:16 NSAIDS (Non-Steroidal AdvReac Mild gi upset Verified 01/13/21 08:16 Anti-Inflamma [NSAIDS (NON-STEROIDAL ANTI-INFLAMMA] Review of Systems Review of Systems Narrative: GENERAL: Denies chills, fatigue, malaise, fever, sweats, travel HEENT: Denies sinus pain, ear pain, sore throat, difficulty swallowing, neck pain RESPIRATORY: Denies dyspnea, cough, wheezing, hemoptysis, sputum. CARDIOVASCULAR: + rib pain Denies chest pain, palpitations, orthopnea, edema GASTROINTESTINAL: Denies nausea, vomiting, abdominal pain, diarrhea, constipation, melena. : Denies dysuria, frequency, incontinence, hematuria, urinary retention, flank pain. MUSCULOSKELETAL:+ rib pain SKIN: No rash, no erythema, no pruritus NEUROLOGIC: Denies weakness, dizziness, headache, numbness, change in speech, confusion PSYCHIATRIC: No concerning psychosocial issues. 12 point review of systems is negative except for those stated above and HPI Patient History Medical History (Updated 01/13/21 @ 08:56 by Mandi Dang DO) Atrial fibrillation (~1979) Cardiac arrhythmia (~1979) Chicken pox (~1940) Chronic back pain (~1979) Colon polyps (08/12/12) Diverticular disease (2000) Foot pain (~1999) GI bleeding (2001) Glaucoma (~1989) Hearing loss (~1989) Hypertension (~1989) Measles (~1940) Mumps (~194) Peptic ulcer disease (~1989) Rosacea (~1999) Small bowel obstruction (01/04/18) Tinnitus (~1979) Surgical History Anesthesia History of colonoscopy with polypectomy (08/12/12) History of incisional hernia repair (2001) History of left inguinal hernia repair (02/10/95) History of removal of cyst (04/05/09) History of right inguinal hernia repair (05/14/98) Status post appendectomy (03/12/01) Status post colectomy (03/12/01) Status post hernia repair Family History Family/Other No problems noted. Family/Other No problems noted. Family/Other No problems noted. Sister No problems noted. Father Alzheimer's disease Mother Stroke Social History household members: spouse Smoking Status: Former smoker Smoking Status: Former smoker alcohol intake frequency: 0-2 drinks per day Substance Use Type: does not use Exam Initial Vital Signs Initial Vital Signs: Vital Signs Temperature 97.8 F 01/13/21 08:09 Pulse Rate 66 01/13/21 08:09 Respiratory Rate 18 01/13/21 08:09 Blood Pressure 184/96 H 01/13/21 08:09 Pulse Oximetry 98 01/13/21 08:09 GENERAL: Alert well-appearing 80-year-old male and in no acute distress. HEENT: Head atraumatic,EOMI, pupils reactive, face symmetric, moist mucous membranes CARDIOVASCULAR: Regular rate and rhythm without murmurs, rubs or gallops. RESPIRATORY: Breath sounds equal bilaterally, no wheezes rales or rhonchi. No paradoxical movement no contusion no erythema tender left lateral side. ABDOMEN: Soft, nontender. Normoactive bowel sounds all 4 quadrants. No guarding or rebound. EXTREMITIES: Normal range of motion, no clubbing or edema. Neurovascularly intact NEUROLOGICAL: Alert and oriented x4.Normal gait and speech. SKIN: Warm, dry, no laceration, no petechiae, no rashes or lesions. Course Orders Ordered: ED Orders 01/13/21 08:06 XR ribs LT min 3V w CXR1V Stat Vital Signs Vital signs: Vital Signs - 8 hr 01/13/21 08:09 01/13/21 09:20 Temperature 97.8 F Pulse Rate 66 80 Respiratory Rate 18 20 Blood Pressure 184/96 H 164/89 H Pulse Oximetry 98 97 MDM - Fall Imaging Data Chest x-ray: Radiologist's Impression: PROCEDURE:? XR RIBS LT MIN 3V W CXR1V ? INDICATIONS:? fall on thinners ? TECHNIQUE:? 2 views of the left ribs were acquired, along with a single view chest.? ? COMPARISON:? None. ? FINDINGS:? ? Surgical changes and devices:? A left upper quadrant clips can be seen. ? Bones and chest wall:? A marker is placed upon the area of clinical concern.? Within this region, no displaced rib fracture or other significant rib abnormality can be seen.? No rib fractures are seen elsewhere.? No suspicious bony lesions.? Age-appropriate bony degenerative changes are seen.? Overlying soft tissues appear unremarkable.? ? Lungs and pleura:? No pleural effusions or pneumothorax.? Lungs appear clear.? ? Mediastinum:? Mediastinal contours appear normal.? Heart size is normal.? ? ? IMPRESSION:? ? No displaced rib fracture can be seen. ? No pneumothorax. ? ? Dictated by: Sukhi Barahona M.D. on 01/13/2021 at 7:50 ? ? MDM Narrative Medical decision making narrative: Patient overall appears well. His x-ray is negative however I do suspect the amount of pain he is in he may have a slight rib fracture that is just not seen. Respiratory has given teaching with incentive spirometer. He is given pain medications and instructions on when to return to ED. Discharge Plan Departure Patient Disposition: Home Clinical Impression: Contusion of rib on left side Qualifiers: Encounter type: initial encounter Qualified Code(s): S20.212A - Contusion of left front wall of thorax, initial encounter Instructions: DI for Rib Contusion Activity Restrictions/Additional Instructions: *You have been diagnosed with rib contusion *What to do: At this time your x-ray is negative however you may have a very small fracture which is not seen. Pain control. Use incentive spirometer few times an hour to help prevent pneumonia *Continue to take medications as directed Blanca 1 tablet every 6 hours if needed for severe pain--> SENT TO [facility] *Follow up with your primary care provider in 2-3 days *Return to ER if you should have increasing pain, cough, fever, shortness of breath or any new, worsening or concerning symptoms CONTROLLED SUBSTANCE DISCHARGE (Narcotoic/benzodiazepine/Flexeril/Phenergan) 1. You have been prescribed narcotic medications, it does have acetaminophen/Tylenol/paracetamol in it, DO NOT TAKE MORE THAN 4,00mg in 24 hours of Tylenol. TRAMADOL DOES NOT CONTAIN TYLENOL 2. Please understand that we cannot provide further refills of narcotics, benzodiazepines or controlled substances through the ED and her pain management will need to be through your provider. 3. While on these medications you cannot drive or operate heavy machinery. 4. You cannot sign legal documents or perform any duties such as this. 5. As long as you're taking opiate pain medications he should also be taking a stool softener such as Colace, Dulcolax, MiraLAX or prune juice, to help avoid constipation. Prescriptions: New hydrocodone-acetaminophen 5-325 mg tablet 1 tab PO Q6H PRN (Reason: pain) Qty: 10 RF: 0 No Action timolol maleate [Timoptic] 0.5 % drops 1 drp EYE-BOTH DAILY Qty: 0 RF: 0 omeprazole 20 mg capsule,delayed release(DR/EC) 20 mg PO DAILY Qty: 90 RF: 3 metoclopramide HCl 5 mg tablet 5 mg PO QID Qty: 60 RF: 5 apixaban [Eliquis] 5 mg tablet 5 mg PO BID Qty: 180 RF: 1 atorvastatin [Lipitor] 20 mg tablet 10 mg PO HS Qty: 50 RF: 3 losartan 50 mg tablet 50 mg PO QDAY Qty: 90 RF: 0 allopurinol 300 mg tablet 300 mg PO QDAY Qty: 60 RF: 0 Referrals: Jh Neumann MD [Primary Care Provider] -
[2021-01-13 09:20] VITALS: BP 164/89; PULSE 80; RESP 20; O2SAT 97
== END 2021-01-13 09:22 | disposition home or self-care (01) ==
PROVIDERS: Emergency Provider Emergency Medicine; PCP Internal Medicine
DX: S20.212A Contusion of left front wall of thorax, initial encounter (principal); W19.XXXA Unspecified fall, initial encounter
CPT/HCPCS: 71101; 99281; 99283

== ENCOUNTER → 2023-04-01 10:08 | Outpatient (CLI) | payer MEDICARE, SELFPAY ==
[2018-01-15 03:29] VITALS: BMI 24.5
[2023-04-01 11:29] LABS: Hemoglobin A1C% w Est Avg Glu 5.7 % (4.0-6.0)
[2023-04-01 11:45] LABS: Alanine Aminotransferase 16 IU/L (<50); Albumin Globulin Ratio 1.2 (1.0-2.8); Alkaline Phosphatase 59 U/L (38-126); Aspartate Aminotransferase 27 IU/L (17-59); BUN Creatinine Ratio 14.8 (6-22); Bilirubin Total 1.1 mg/dL (0.2-1.3); Blood Urea Nitrogen 12 mg/dL (9-20); Carbon Dioxide 29 mmol/L (22-32); Chloride 103 mmol/L (98-107); Cholesterol 147 mg/dL (140-199); Estimated Glomerular Filt Rate > 60 mL/min (>60); Globulin 3.3 g/dL (1.7-4.1); Glucose 108 mg/dL (80-110); HDL Cholesterol 39 mg/dL (40-60); HEMOLYSIS < 15 (0-50); LDL Cholesterol Calculated 89 mg/dL (<100); Potassium 4.2 mmol/L (3.4-5.1); Sodium 138 mmol/L (137-145); Total Protein 7.3 g/dL (6.3-8.2); Triglycerides 97 mg/dL (35-150)
== END ==
PROVIDERS: PCP Family Medicine; Referring Provider Family Medicine; Visit Provider Family Medicine
DX: R73.01 Impaired fasting glucose (principal); E78.2 Mixed hyperlipidemia; I48.91 Unspecified atrial fibrillation
CPT/HCPCS: 36415; 80053; 80061; 83036

== ENCOUNTER → 2024-02-05 08:41 | Outpatient (CLI) | payer MEDICARE, SELFPAY ==
[2018-01-15 03:29] VITALS: BMI 24.5
[2024-02-05 09:33] LABS: Hematocrit 46.3 % (41-53); Hemoglobin 15.6 g/dL (13.5-17.5); Mean Corpuscular HGB Conc 33.7 % (30-36); Mean Corpuscular Volume 100.8 fL (80-100); Platelet Count 226 X10^3/uL (150-400); Red Cell Distribution Width 13.5 % (11.6-14.8); White Blood Cell Count 5.9 X10^3/uL (4.5-11.0)
[2024-02-05 09:53] LABS: Hemoglobin A1C% w Est Avg Glu 5.5 % (4.0-6.0)
[2024-02-05 09:54] LABS: Alanine Aminotransferase 17 IU/L (<50); Albumin 4.4 g/dL (3.5-5.0); Albumin Globulin Ratio 1.5 (1.0-2.8); Alkaline Phosphatase 76 U/L (38-126); Aspartate Aminotransferase 32 IU/L (17-59); BUN Creatinine Ratio 17.7 (6-22); Blood Urea Nitrogen 17 mg/dL (9-20); Calcium 9.2 mg/dL (8.4-10.2); Carbon Dioxide 29 mmol/L (22-32); Chloride 100 mmol/L (98-107); Cholesterol 168 mg/dL (140-199); Estimated Glomerular Filt Rate > 60 mL/min (>60); Globulin 2.9 g/dL (1.7-4.1); Glucose 110 mg/dL (80-110); HDL Cholesterol 46 mg/dL (40-60); HEMOLYSIS < 15 (0-50); LDL Cholesterol Calculated 93 mg/dL (<100); Potassium 4.5 mmol/L (3.4-5.1); Sodium 137 mmol/L (137-145); Total Protein 7.3 g/dL (6.3-8.2); Triglycerides 143 mg/dL (35-150)
== END ==
PROVIDERS: PCP Family Medicine; Referring Provider Family Medicine; Visit Provider Family Medicine
DX: R73.01 Impaired fasting glucose (principal); I10 Essential (primary) hypertension; Z00.00 Encounter for general adult medical examination without abnormal findings; I48.91 Unspecified atrial fibrillation; E78.2 Mixed hyperlipidemia; R71.8 Other abnormality of red blood cells
CPT/HCPCS: 36415; 80053; 80061; 83036; 85027

== ENCOUNTER → 2025-02-06 08:51 | Outpatient (CLI) | payer MEDICARE, SELFPAY ==
[2018-01-15 03:29] VITALS: BMI 24.5
[2025-02-06 09:50] LABS: Hematocrit 43.7 % (41-53); Hemoglobin 14.7 g/dL (13.5-17.5); Mean Corpuscular HGB Conc 33.7 % (30-36); Mean Corpuscular Hemoglobin 34.0 PG (26-34); Mean Corpuscular Volume 100.8 fL (80-100); Platelet Count 199 X10^3/uL (150-400)
[2025-02-06 09:54] LABS: Hemoglobin A1C% w Est Avg Glu 5.6 % (4.0-6.0)
[2025-02-06 10:18] LABS: Alanine Aminotransferase 13 IU/L (<50); Albumin 4.2 g/dL (3.5-5.0); Albumin Globulin Ratio 1.3 (1.0-2.8); Alkaline Phosphatase 63 U/L (38-126); Blood Urea Nitrogen 14 mg/dL (9-20); Calcium 9.0 mg/dL (8.4-10.2); Carbon Dioxide 30 mmol/L (22-32); Chloride 103 mmol/L (98-107); Cholesterol 139 mg/dL (140-199); Estimated Glomerular Filt Rate > 60 mL/min (>60); Globulin 3.2 g/dL (1.7-4.1); Glucose 89 mg/dL (70-99); HDL Cholesterol 52 mg/dL (40-60); HEMOLYSIS < 15 (0-50); Potassium 4.9 mmol/L (3.4-5.1); Sodium 140 mmol/L (137-145); Total Protein 7.4 g/dL (6.3-8.2); Triglycerides 82 mg/dL (35-150); Uric Acid 3.3 mg/dL (3.5-8.5)
== END ==
PROVIDERS: PCP Family Medicine; Referring Provider Family Medicine; Visit Provider Family Medicine
DX: Z00.00 Encounter for general adult medical examination without abnormal findings (principal); R71.8 Other abnormality of red blood cells; R73.01 Impaired fasting glucose; I10 Essential (primary) hypertension; I48.0 Paroxysmal atrial fibrillation; E78.2 Mixed hyperlipidemia; M10.9 Gout, unspecified
CPT/HCPCS: 36415; 80053; 80061; 83036; 84550; 85027